=== PATIENT | female | born 1965 | race Caucasian/White ===

== ENCOUNTER 2016-06-26 11:14 | Inpatient (IN) | payer OTHER ==
[2016-06-26] VITALS (7 sets, daily range): BP systolic 114–128; BP diastolic 62–87; PULSE 77–99; RESP 12–22; TEMP 96.2–97.9; O2SAT 97–99
[~2016-06-26] VITALS: Ht 170.2 cm; Wt 61.4 kg
[~2016-06-26 11:14] MED LIST: DEPA500T3 PO; DULO20 PO; FIORINAL2 PO; IMIT100T PO; XANA1TAB6 PO; ZOLP10TA3 PO
--- NOTE | 2016-06-26 11:25 | PD ---
HPI Chief Complaint: flank pain Time Seen by Provider: 11:19 Travel History International Travel<30 days: No Contact w/Intl Traveler<30days: No Traveled to known affect area: No History of Present Illness HPI 50-year-old female came to the emergency room brought by EMS with history of right-sided flank pain that's been going on since yesterday. Patient has history of passing multiple renal calculi. Patient realized that this was probably another of those and took some Advil last night. However this morning the pain has been severe and she has been nauseous. She has been trying to urinate but has been unsuccessful since this morning. Paramedics gave her total of 8 mg of morphine so far. She looks a little more comfortable at this point. No history of fever or chills. [facility] Past Medical History Narrative Medical List of her past medical history is reviewed from the nursing note. Bipolar Disorder: Yes Anxiety: Yes Depression: Yes Heart Rhythm Problems: No Cardiac Catheterization: No Cardiovascular Problems: No High Cholesterol: No Congestive Heart Failure: No Diabetes: No Diminished Hearing: No Fibromyalgia: Yes Hypertension: No Kidney Stones: Yes Neurologic: Yes (RLS) Immunizations Current: Yes Migraines: Yes Menopausal: Yes Past Surgical History Appendectomy: Yes Section: Yes Coronary Artery Bypass Graft: No Gynecologic Surgery: Yes (hysterectomy) Hysterectomy: Yes Social History Alcohol Use: No Tobacco Use: Yes (1 PPD) Substance Use: No Allergies-Medications (Allergen,Severity, Reaction): Coded Allergies: No Known Allergies (Verified , 06/26/16) Comments No known drug allergies. Reported Meds & Prescriptions Reported Meds & Active Scripts Active Reported Fiorinal (Butalbital/Aspirin/Caffeine) 50-325-40 Mg Cap 1 Cap PO Q4H PRN Do not exceed 6 capsules/day. Ambien (Zolpidem Tartrate) 10 Mg Tab 10 Mg PO HS PRN Imitrex (Sumatriptan Succinate) 100 Mg Tab 100 Mg PO ONCE PRN If a satisfactory response has not been obtained at 2 hours, a second dose may be administered Depakote ER (Divalproex Sodium) 500 Mg Luana 500 Mg PO BID Alprazolam 1 Mg Tab 1 Mg PO BID PRN Narrative Medication List of her home medications reviewed from the nursing note. Review of Systems Except as stated in HPI: all other systems reviewed are Neg Physical Exam Narrative GENERAL: Awake, alert, moderate distress SKIN: Warm and dry. Pale HEAD: Atraumatic. Normocephalic. EYES: Pupils equal and round. No scleral icterus. No injection or drainage. ENT: No nasal bleeding or discharge. Dry mucous membrane NECK: Trachea midline. No JVD. CARDIOVASCULAR: Regular rate and rhythm. No murmur appreciated. RESPIRATORY: No accessory muscle use. Clear to auscultation. Breath sounds equal bilaterally. GASTROINTESTINAL: Abdomen soft, non-tender, nondistended. Hepatic and splenic margins not palpable. MUSCULOSKELETAL: No obvious deformities. No clubbing. No cyanosis. No edema. NEUROLOGICAL: Awake and alert. No obvious cranial nerve deficits. Motor grossly within normal limits. Normal speech. PSYCHIATRIC: Appropriate mood and affect; insight and judgment normal. Data Data Last Documented VS Vital Signs Date Time Temp Pulse Resp B/P Pulse Ox O2 Delivery O2 Flow Rate FiO2 06/26/16 13:00 90 20 121/62 98 Room Air 06/26/16 11:23 97.9 Orders Complete Blood Count With Diff (06/26/16 11:30) Comprehensive Metabolic Panel (06/26/16 11:30) Urinalysis - C+S If Indicated (06/26/16 11:30) Ct Abd/Pel W/O Iv Contrast (06/26/16 11:30) Ecg Monitoring (06/26/16 11:30) Iv Access Insert/Monitor (06/26/16 11:30) Sodium Chloride 0.9% Flush (Ns Flush) (06/26/16 11:30) Sodium Chlor 0.9% 1000 Ml Inj (Ns 1000 M (06/26/16 11:30) Ketorolac Inj (Toradol Inj) (06/26/16 11:30) Sodium Chlor 0.9% 1000 Ml Inj (Ns 1000 M (06/26/16 13:00) Ceftriaxone Inj (Rocephin Inj) (06/26/16 13:15) Blood Culture (06/26/16 13:05) Lactic Acid (06/26/16 13:05) Admit Order (Ed Use Only) (06/26/16 13:15) Labs Laboratory Tests Test 06/26/16 06/26/16 11:41 12:48 White Blood Count 15.7 TH/MM3 Red Blood Count 4.60 MIL/MM3 Hemoglobin 13.9 GM/DL Hematocrit 41.2 % Mean Corpuscular Volume 89.5 FL Mean Corpuscular Hemoglobin 30.2 PG Mean Corpuscular Hemoglobin 33.7 % Concent Red Cell Distribution Width 12.9 % Platelet Count 241 TH/MM3 Mean Platelet Volume 7.4 FL Neutrophils (%) (Auto) 79.1 % Lymphocytes (%) (Auto) 10.2 % Monocytes (%) (Auto) 8.5 % Eosinophils (%) (Auto) 1.3 % Basophils (%) (Auto) 0.9 % Neutrophils # (Auto) 12.4 TH/MM3 Lymphocytes # (Auto) 1.6 TH/MM3 Monocytes # (Auto) 1.3 TH/MM3 Eosinophils # (Auto) 0.2 TH/MM3 Basophils # (Auto) 0.1 TH/MM3 CBC Comment DIFF FINAL Differential Comment Sodium Level 140 MEQ/L Potassium Level 3.5 MEQ/L Chloride Level 106 MEQ/L Carbon Dioxide Level 25.3 MEQ/L Anion Gap 9 MEQ/L Blood Urea Nitrogen 30 MG/DL Creatinine 1.38 MG/DL Estimat Glomerular Filtration 41 ML/MIN Rate Random Glucose 93 MG/DL Calcium Level 9.0 MG/DL Total Bilirubin 0.3 MG/DL Aspartate Amino Transf 11 U/L (AST/SGOT) Alanine Aminotransferase 21 U/L (ALT/SGPT) Alkaline Phosphatase 67 U/L Total Protein 6.8 GM/DL Albumin 4.0 GM/DL Urine Color YELLOW Urine Turbidity HAZY Urine pH 6.0 Urine Specific [place] 1.014 Urine Protein 30 mg/dL Urine Glucose (UA) NEG mg/dL Urine Ketones NEG mg/dL Urine Occult Blood LARGE Urine Nitrite NEG Urine Bilirubin NEG Urine Urobilinogen LESS THAN 2.0 MG/DL Urine Leukocyte Esterase NEG Urine RBC /hpf Urine WBC 8 /hpf Urine Squamous Epithelial 1 /hpf Cells Microscopic Urinalysis Comment CULT NOT INDICATED MDM Medical Decision Making Medical Screen Exam Complete: Yes Emergency Medical Condition: Yes Medical Record Reviewed: Yes Differential Diagnosis Ureteral colic, pyelonephritis, musculoskeletal pain Narrative Course 11:45 AM awaiting for the blood test result and the CAT scan to be done and resulted. Patient is getting IV fluid and Toradol. 1:20 PM based on the CAT scan report I discussed with Dr. Park who was manager convention for urology. Given the fact that her pain is coming back and there are significant hydroureter on the right side, I have decided to admit her. UA appears to be in normal limits. White count is elevated. I spoke with the residents and admitted the patient. Procedures EKG Prior to Arrival: No Physician Communication Physician Communication Dr. Buckner Diagnosis Primary Impression: Renal colic Additional Impressions: Hydroureter Leukocytosis Qualified Code: D72.829 - Leukocytosis, unspecified type Admitting Information Admitting Physician Requests: Admit Scripts Ketorolac 10 Mg Tab10 Mg PO Q6HR PRN (PAIN) #30 TAB Ref 0 Prov:Nydia Desouza MD R2 06/27/16 Tawana Caro MD Jun 26, 2016 11:25
[2016-06-26] MEDS ORDERED: SODIUM CHLOR 0.9% 1000 ML INJ 1,000 ML IV ONE ×2 (11:30→13:00)
[2016-06-26] MEDS ORDERED: KETOROLAC TROMETHAMINE 30 MG/ML (IVP) VIAL IV PUSH ONE (11:30)
[2016-06-26] MEDS ORDERED: SODIUM CHLORIDE 0.9% FLUSH 5 ML FLUSH IVF PRN (11:30)
[2016-06-26] MEDS ORDERED: IMIT100T PO (11:36)
[2016-06-26] MEDS ORDERED: DEPA500T3 PO (11:36)
[2016-06-26] MEDS ORDERED: AMBI10TA PO (11:36)
[2016-06-26] MEDS ORDERED: FIORINAL2 PO (11:36)
[2016-06-26] MEDS ORDERED: ALPR1TAB3 PO (11:36)
[2016-06-26 11:51] LABS: AUTOMATED NEUTROPHIL # 12.4 TH/MM3 (1.8-7.7); BASOPHIL # 0.1 TH/MM3 (0-0.2); BASOPHIL % 0.9 % (0.0-2.0); EOSINOPHIL # 0.2 TH/MM3 (0-0.4); EOSINOPHIL % 1.3 % (0.0-4.0); HEMATOCRIT 41.2 % (35.0-46.0); HEMO FLAGS DIFF FINAL; LYMPH % 10.2 % (9.0-44.0); LYMPHOCYTE # 1.6 TH/MM3 (1.0-4.8); MEAN CELL VOLUME 89.5 FL (80.0-100.0); MEAN CORPUSCULAR HEMOGLOBIN 30.2 PG (27.0-34.0); MEAN CORPUSCULAR HGB CONC 33.7 % (32.0-36.0); MONO % 8.5 % (0.0-8.0); NEUT % 79.1 % (16.0-70.0); PLATELET COUNT 241 TH/MM3 (150-450); RED CELL DISTRIBUTION WIDTH 12.9 % (11.6-17.2); WHITE BLOOD COUNT 15.7 TH/MM3 (4.0-11.0)
[2016-06-26 12:07] LABS: ANION GAP 9 MEQ/L (5-15); AST (GOT) 11 U/L (15-37); BICARBONATE 25.3 MEQ/L (21.0-32.0); BLOOD UREA NITROGEN 30 MG/DL (7-18); CHLORIDE 106 MEQ/L (98-107); GLOMERULAR FILTRATION RATE 41 ML/MIN (>89); POTASSIUM 3.5 MEQ/L (3.5-5.1); SODIUM (NA) 140 MEQ/L (136-145)
[2016-06-26 12:12] LABS: ALKALINE PHOSPHATASE 67 U/L (45-117); ALT (GPT) 21 U/L (10-53); TOTAL BILIRUBIN ADULT 0.3 MG/DL (0.2-1.0)
--- NOTE | 2016-06-26 12:55 | RADRPT ---
EXAM DATE/TIME: 06/26/2016 12:23 [place] COMPARISON: No previous studies available for comparison. INDICATIONS : Right flank pain. ORAL CONTRAST: No oral contrast ingested. RADIATION DOSE: 5.09 CTDIvol (mGy) MEDICAL HISTORY : Renal calculi. SURGICAL HISTORY : Appendectomy. Hysterectomy. ENCOUNTER: Initial ACUITY: 1 day PAIN SCALE: 7/10 LOCATION: Right flank TECHNIQUE: Volumetric scanning of the abdomen and pelvis was performed. Using automated exposure control and ad justment of the mA and/or kV according to patient size, radiation dose was kept as low as reasonably achievable to obtain optimal diagnostic quality images. FINDINGS: LOWER LUNGS: The visualized lower lungs are clear. LIVER: Visualized portions are unremarkable SPLEEN: Visualized portions are unremarkable PANCREAS: Within normal limits. KIDNEYS: There is moderate right hydronephrosis and hydroureter. The ureter appears to be dilated throughout, however no definite calcific focus is identified along the course of the ureter. There is a 3-4 mm no nobstructing calculus in the lower pole collecting system of the right kidney and there is a 3-4 mm o ssific focus along the dependent posterior wall of the urinary bladder which may be a recently passed stone. There is mild perinephric and periureteric induration on the right side mild swelling of the kidney. Contralateral left kidney is notable for small cyst in the posterior lateral lower pole miroslava x. ADRENAL GLANDS: Within normal limits. VASCULAR: 3.3 cm abdominal aortic aneurysm. Patchy atherosclerotic calcification. BOWEL/MESENTERY: The stomach, small bowel, and colon demonstrate no acute abnormality. There is no free intraperitone al air or fluid. ABDOMINAL WALL: Within normal limits. RETROPERITONEUM: There is no lymphadenopathy. BLADDER: See above REPRODUCTIVE: Within normal limits. INGUINAL: There is no lymphadenopathy or hernia. MUSCULOSKELETAL: Within normal limits for patient age. CONCLUSION: Moderate right hydronephrosis and hydroureter. Tiny nonobstructing lower pole collecting system stone and small stone in the urinary bladder, likely recently passed. No evidence of remaining ureteral st one. Mal Carrington MD on June 26, 2016 at 12:42 Board Certified Radiologist. This report was verified electronically.
[2016-06-26 13:13] LABS: BLOOD, URINE LARGE (NEG); COMMENT (UR) CULT NOT INDICATED; CULTURE IF INDICATED CULT NOT INDICATED; GLUCOSE,URINE NEG (NEG); KETONE, URINE NEG (NEG); NITRITE,URINE NEG (NEG); SQUAMOUS EPITHELIAL CELL URINE 1 /hpf (0-5); URINE COLOR YELLOW (YELLW/STRAW)
[2016-06-26] MEDS ORDERED: cefTRIAXone INJ 1,000 MG in SODIUM CHLORIDE 0.9% INJ 100 ML IV ONE (13:15)
--- NOTE | 2016-06-26 13:26 | HHI.HP ---
HPI Service Family Medicine Team A Dr. Mejia attending Dr. Desouza PGY2 Dr. Pollack PGY1 Dr. Escalona PGY3 Primary Care Physician Neil Jones MD Admission Diagnosis Diagnoses: International Travel<30 Days: No Contact w/Intl Traveler<30days: No Known Affected Area: No History of Present Illness This is a 50-year-old female patient with a history of renal stones presents today for right flank pain 1 day. It started night. She states she just passed 4 kidney stones in May. She states she has hx of kidney stones and passes them 3-4x a year. She has been seen by urologist multiple times. She states she has never had a stone analyzed. She is unclear what the workup has contained and she thinks they don't know she continues to make them. She has never had to have surgery to remove the stone. She is not having any pain with urination. She denies F/C. She states the pain was worse today. She has a history of abdominal aneurysm and when her pain worsened she called 911. In the ED CT scan was significant for right hydronephrosis, nonobstructing Calculus, and ossific focus and urinary bladder. Patient was found to have significant leukocytosis. Dr. Park was contacted and is aware of the patient. Patient was started on some IV fluids. UA obtained. She was given 1 g of Rocephin. Review of Systems Constitutional: DENIES: Fever, Chills Eyes: DENIES: Blurred vision, Diplopia Ears, nose, mouth, throat: DENIES: Tinnitus, Hearing loss Respiratory: DENIES: Cough, Shortness of breath Cardiovascular: DENIES: Chest pain, Palpitations Gastrointestinal: COMPLAINS OF: Abdominal pain, DENIES: Nausea Genitourinary: DENIES: Urinary frequency, Urinary incontinence, Urgency Musculoskeletal: COMPLAINS OF: Muscle aches, Back pain, DENIES: Neck pain Neurologic: DENIES: Abnormal gait Psychiatric: DENIES: Mood changes Past Family Social History Past Medical History Migraines Anxiety and Depression Aneurysm Past Surgical History Hysterectomy Reported Medications Fiorinal (Butalbital/Aspirin/Caffeine) 50-325-40 Mg Cap 1 Cap PO Q4H PRN Do not exceed 6 capsules/day. Imitrex (Sumatriptan Succinate) 100 Mg Tab 100 Mg PO ONCE PRN If a satisfactory response has not been obtained at 2 hours, a second dose may be administered Depakote ER (Divalproex Sodium) 500 Mg Luana 500 Mg PO BID Alprazolam 1 Mg Tab 1 Mg PO BID PRN Ambien hs Allergies: Coded Allergies: No Known Allergies (Verified , 06/26/16) Family History Father passed of [place] at 48 yo Mother no significant medical illness, uncle with bladder cancer Social History Lives with son works at [employer] No alcohol use No drug use Cigarette use (1pck/day x 30 yrs) Physical Exam Vital Signs Vital Signs Date Time Temp Pulse Resp B/P Pulse Ox O2 Delivery O2 Flow Rate FiO2 06/26/16 12:50 20 06/26/16 12:49 94 22 128/71 98 Room Air 06/26/16 11:29 96 18 06/26/16 11:23 97.9 99 18 125/80 99 Physical Exam GENERAL: This is a well-nourished, well-developed patient, in no apparent distress. SKIN: No rashes, ecchymoses or lesions. Cool and dry. HEAD: Atraumatic. Normocephalic. No temporal or scalp tenderness. EYES: Pupils equal round and reactive. Extraocular motions intact. No scleral icterus. No injection or drainage. ENT: Nose without bleeding, purulent drainage or septal hematoma. Throat without erythema, tonsillar hypertrophy or exudate. Uvula midline. Airway patent. NECK: Trachea midline. No JVD or lymphadenopathy. Supple, nontender, no meningeal signs. CARDIOVASCULAR: Regular rate and rhythm without murmurs, gallops, or rubs. RESPIRATORY: Clear to auscultation. Breath sounds equal bilaterally. No wheezes , rales, or rhonchi. GASTROINTESTINAL: Abdomen soft and nondistended. Minimal tenderness to palpation of RLQ. No guarding. BACK: ++RT CVA tenderness MUSCULOSKELETAL: Extremities without clubbing, cyanosis, or edema. No joint tenderness, effusion, or edema noted. No calf tenderness. Negative Homans sign bilaterally. NEUROLOGICAL: Awake and alert. Cranial nerves II through XII intact. Motor and sensory grossly within normal limits. Five out of 5 muscle strength in all muscle groups. Normal speech. Laboratory Laboratory Tests Test 06/26/16 06/26/16 11:41 12:48 White Blood Count 15.7 Red Blood Count 4.60 Hemoglobin 13.9 Hematocrit 41.2 Mean Corpuscular Volume 89.5 Mean Corpuscular Hemoglobin 30.2 Mean Corpuscular Hemoglobin 33.7 Concent Red Cell Distribution Width 12.9 Platelet Count 241 Mean Platelet Volume 7.4 Neutrophils (%) (Auto) 79.1 Lymphocytes (%) (Auto) 10.2 Monocytes (%) (Auto) 8.5 Eosinophils (%) (Auto) 1.3 Basophils (%) (Auto) 0.9 Neutrophils # (Auto) 12.4 Lymphocytes # (Auto) 1.6 Monocytes # (Auto) 1.3 Eosinophils # (Auto) 0.2 Basophils # (Auto) 0.1 CBC Comment DIFF FINAL Differential Comment Sodium Level 140 Potassium Level 3.5 Chloride Level 106 Carbon Dioxide Level 25.3 Anion Gap 9 Blood Urea Nitrogen 30 Creatinine 1.38 Estimat Glomerular Filtration 41 Rate Random Glucose 93 Calcium Level 9.0 Total Bilirubin 0.3 Aspartate Amino Transf 11 (AST/SGOT) Alanine Aminotransferase 21 (ALT/SGPT) Alkaline Phosphatase 67 Total Protein 6.8 Albumin 4.0 Urine Color YELLOW Urine Turbidity HAZY Urine pH 6.0 Urine Specific [place] 1.014 Urine Protein 30 Urine Glucose (UA) NEG Urine Ketones NEG Urine Occult Blood LARGE Urine Nitrite NEG Urine Bilirubin NEG Urine Urobilinogen LESS THAN 2.0 Urine Leukocyte Esterase NEG Urine RBC Urine WBC 8 Urine Squamous Epithelial 1 Cells Microscopic Urinalysis Comment CULT NOT INDICATED Result Diagram: 06/26/16 1141 06/26/[address] abdomen: rt hydronephrosis, non obstructing calculus, ossific focus in urinary bladder Assessment and Plan Assessment and Plan 50-year-old female patient who presented with right flank pain 1 day found to have a right nonobstructing calculus. Code Status full Discussed Condition With Dr. Desouza ED physician wdw Dr. Mejia Problem List: (1) Calculi, ureter Status: Acute Plan: See CT of abdomen above. LIZET noted, Ct 1.38 on admission, previously <1 - UA pending - Urine culture pending - Dr. Vivian belle consulted - Continue IV Rocephin 1 g because of significant leukocytosis. - Morphine & Toradol for pain - IVF . (2) Anxiety and depression Status: Chronic Plan: Continue home meds: ativan, depakote, requip (3) Migraine Status: Chronic Plan: Continue home imitrex and fiorcet prn (4) FEN Status: Acute Plan: Fluids: IV NS @ 100 cc/hr, status post 1 L bolus Electrolytes: currently wnl, replete as necessary Nutrition: regular diet DVT prophy: bilat SCDs Physician Certification 2 Midnight Certification Type: Admission for Inpatient Services Order for Inpatient Services The services are ordered in accordance with Medicare regulations or non- Medicare payer requirements, as applicable. In the case of services not specified as inpatient-only, they are appropriately provided as inpatient services in accordance with the 2-midnight benchmark. Estimated LOS (days): 3 days is the estimated time the patient will need to remain in the hospital, assuming treatment plan goals are met and no additional complications. Post-Hospital Plan: Home Kathleen Escalona MD R3 Jun 26, 2016 13:26
[2016-06-26] MEDS ORDERED: ZOLPIDEM TARTRATE 10 MG TAB PO PRN (14:00)
[2016-06-26] MEDS ORDERED: ALPRAZolam 1 MG TAB PO PRN (14:00)
[2016-06-26] MEDS ORDERED: SUMAtriptan SUCCINATE 50 MG TAB PO PRN (14:00)
[2016-06-26] MEDS: SODIUM CHLOR 0.9% 1000 ML INJ 1,000 ML IV SCH (14:07)
[2016-06-26] MEDS ORDERED: ASPIRIN 325 MG/CAFFEINE 40 MG/BUTALBITAL 50 MG CAP PO PRN (15:00)
[2016-06-26] MEDS: MORPHINE SULFATE 4 MG/ML INJ IV PUSH PRN ×2 (15:48→20:51)
--- NOTE | 2016-06-26 17:14 | PD.CONS ---
[facility] Service Urology Consult Requested By Reason for Consult Right hydronephrosis Primary Care Physician Neil Jones MD Diagnosis: History of Present Illness 50-year-old female with history recurrent nephrolithiasis who presented to the emergency room complaining of right flank pain 1 day. Workup included a CT stone protocol that demonstrated right hydroureteronephrosis however there were no obstructing stones seen within the ureter. Was a small stone seen within the bladder consistent with recent stone passage. Patient also was noted to have elevation of the white blood cell count and thus was admitted for IVs antibiotics and analgesic support. Urology consult was placed due to the fact that the patient had hydronephrosis with elevation of the white cell count. At the time of consultation the patient was resting quietly and in no acute distress. She denied gross hematuria or dysuria. Reports that she has passed multiple stones in the past spontaneously and never required any type of urological procedure. She typically passes 3-4 stones per year. Review of Systems Constitutional: DENIES: Fever, Chills Gastrointestinal: DENIES: Nausea, Vomiting Genitourinary: DENIES: Hematuria, Dysuria Musculoskeletal: COMPLAINS OF: Back pain (right flank) Other All other systems negative Past Family Social History Past Medical History Migraine headaches Anxiety/depression Aortic aneurysm Recurrent nephrolithiasis Past Surgical History Status post hysterectomy Status post section Reported Medications Refer to EMR Allergies: Coded Allergies: No Known Allergies (Verified , 06/26/16) Active Ordered Medications Refer to EMR Family History No family history for nephrolithiasis Social History Smoker one pack per day 30 years Denies alcohol or intravenous drug abuse Physical Exam Vital Signs Vital Signs Date Time Temp Pulse Resp B/P Pulse Ox O2 Delivery O2 Flow Rate FiO2 06/26/16 15:55 20 06/26/16 15:04 89 20 127/87 99 Room Air 06/26/16 14:00 94 22 122/83 98 Room Air 06/26/16 13:00 90 20 121/62 98 Room Air 06/26/16 12:50 20 06/26/16 12:49 94 22 128/71 98 Room Air 06/26/16 11:29 96 18 06/26/16 11:23 97.9 99 18 125/80 99 Physical Exam GENERAL: This is a well-nourished, well-developed patient, in no apparent distress. SKIN: No rashes, ecchymoses or lesions. Cool and dry. HEAD: Atraumatic. Normocephalic. No temporal or scalp tenderness. EYES: Pupils equal round and reactive. Extraocular motions intact. No scleral icterus. No injection or drainage. ENT: Nose without bleeding, purulent drainage or septal hematoma. Throat without erythema, tonsillar hypertrophy or exudate. Uvula midline. Airway patent. NECK: Trachea midline. No JVD or lymphadenopathy. Supple, nontender, no meningeal signs. CARDIOVASCULAR: Regular rate and rhythm without murmurs, gallops, or rubs. RESPIRATORY: Clear to auscultation. Breath sounds equal bilaterally. No wheezes , rales, or rhonchi. GASTROINTESTINAL: Abdomen soft, non-tender, nondistended. No hepato-splenomegaly , or palpable masses. No guarding. MUSCULOSKELETAL: Extremities without clubbing, cyanosis, or edema. No joint tenderness, effusion, or edema noted. No calf tenderness. Negative Homans sign bilaterally. NEUROLOGICAL: Awake and alert. Cranial nerves II through XII intact. Motor and sensory grossly within normal limits. Five out of 5 muscle strength in all muscle groups. Normal speech. Laboratory Laboratory Tests Test 06/26/16 06/26/16 06/26/16 11:41 12:48 14:00 White Blood Count 15.7 Red Blood Count 4.60 Hemoglobin 13.9 Hematocrit 41.2 Mean Corpuscular Volume 89.5 Mean Corpuscular Hemoglobin 30.2 Mean Corpuscular Hemoglobin 33.7 Concent Red Cell Distribution Width 12.9 Platelet Count 241 Mean Platelet Volume 7.4 Neutrophils (%) (Auto) 79.1 Lymphocytes (%) (Auto) 10.2 Monocytes (%) (Auto) 8.5 Eosinophils (%) (Auto) 1.3 Basophils (%) (Auto) 0.9 Neutrophils # (Auto) 12.4 Lymphocytes # (Auto) 1.6 Monocytes # (Auto) 1.3 Eosinophils # (Auto) 0.2 Basophils # (Auto) 0.1 CBC Comment DIFF FINAL Differential Comment Sodium Level 140 Potassium Level 3.5 Chloride Level 106 Carbon Dioxide Level 25.3 Anion Gap 9 Blood Urea Nitrogen 30 Creatinine 1.38 Estimat Glomerular Filtration 41 Rate Random Glucose 93 Calcium Level 9.0 Total Bilirubin 0.3 Aspartate Amino Transf 11 (AST/SGOT) Alanine Aminotransferase 21 (ALT/SGPT) Alkaline Phosphatase 67 Total Protein 6.8 Albumin 4.0 Urine Color YELLOW Urine Turbidity HAZY Urine pH 6.0 Urine Specific [place] 1.014 Urine Protein 30 Urine Glucose (UA) NEG Urine Ketones NEG Urine Occult Blood LARGE Urine Nitrite NEG Urine Bilirubin NEG Urine Urobilinogen LESS THAN 2.0 Urine Leukocyte Esterase NEG Urine RBC Urine WBC 8 Urine Squamous Epithelial 1 Cells Microscopic Urinalysis Comment CULT NOT INDICATED Lactic Acid Level 0.4 Date/Time Procedure Status Source Growth 06/26/16 14:00 Aerobic Blood Culture Received Blood Peripheral Pending 06/26/16 14:00 Anaerobic Blood Culture Received Blood Peripheral Pending Result Diagram: 06/26/16 1141 06/26/[address] scanning demonstrated an approximately 4 mm right lower pole calculus, right hydroureteronephrosis with no ureteral stone seen, a small left renal cyst and a small stone measuring approximately 4 mm within the urinary bladder. Assessment and Plan Assessment and Plan Urologic impression: #1 Right hydronephrosis related to recent stone passage with a 4 mm stone noted to be within the urinary bladder. #2 nonobstructing right lower pole renal calculus measuring approximate 4 mm #3 small simple cyst to left kidney Recommendations: #1 analgesic support #2 strain urine #3 urologically cleared for discharge home when pain managed with oral meds and vitals stable #4 office follow up in approximately 2 weeks [phone]. Daniel Park MD Jun 26, 2016 17:14
[2016-06-26] MEDS: KETOROLAC TROMETHAMINE 30 MG/ML (IVP) VIAL IV PUSH PRN (18:19)
[2016-06-26] MEDS: NICOTINE 21 MG/24 HR PATCH TD SCH (20:44)
[2016-06-26] MEDS: DIVALPROEX SODIUM E.R. 500 MG TAB PO SCH (20:44)
[2016-06-27] VITALS: BP 132/63; PULSE 87; RESP 17; TEMP 98.3; O2SAT 99
[2016-06-27] MEDS: SODIUM CHLOR 0.9% 1000 ML INJ 1,000 ML IV SCH
[2016-06-27] MEDS: KETOROLAC TROMETHAMINE 30 MG/ML (IVP) VIAL IV PUSH PRN ×2 (03:45→09:32)
[2016-06-27 04:00] VITALS: BP 138/81; PULSE 90; RESP 18; TEMP 97.6; O2SAT 98
[2016-06-27] MEDS: MORPHINE SULFATE 4 MG/ML INJ IV PUSH PRN (05:32)
[2016-06-27 07:59] LABS: AUTOMATED NEUTROPHIL # 4.9 TH/MM3 (1.8-7.7); BASOPHIL # 0.1 TH/MM3 (0-0.2); BASOPHIL % 1.1 % (0.0-2.0); EOSINOPHIL # 0.3 TH/MM3 (0-0.4); EOSINOPHIL % 3.7 % (0.0-4.0); HEMATOCRIT 35.5 % (35.0-46.0); HEMO FLAGS DIFF FINAL; LYMPH % 22.8 % (9.0-44.0); LYMPHOCYTE # 1.8 TH/MM3 (1.0-4.8); MEAN CELL VOLUME 90.3 FL (80.0-100.0); MEAN CORPUSCULAR HEMOGLOBIN 30.4 PG (27.0-34.0); MEAN CORPUSCULAR HGB CONC 33.7 % (32.0-36.0); MONO % 8.9 % (0.0-8.0); NEUT % 63.5 % (16.0-70.0); PLATELET COUNT 210 TH/MM3 (150-450); RED BLOOD COUNT 3.93 MIL/MM3 (4.00-5.30); RED CELL DISTRIBUTION WIDTH 12.8 % (11.6-17.2); WHITE BLOOD COUNT 7.7 TH/MM3 (4.0-11.0)
[2016-06-27 08:00] VITALS: BP 138/61; PULSE 86; RESP 18; TEMP 98.1; O2SAT 98
[2016-06-27] MEDS ORDERED: KETO10 PO (08:05)
--- NOTE | 2016-06-27 08:05 | HHI.DCPOC ---
Discharge Care Plan Diagnosis: (1) Calculi, ureter (2) Hydroureter Goals to Promote Your Health * To prevent worsening of your condition and complications * To maintain your health at the optimal level Directions to Meet Your Goals Take your medications as prescribed Follow your dietary instruction Follow activity as directed Keep your appointments as scheduled Take your immunizations and boosters as scheduled If your symptoms worsen call your PCP, if no PCP go to Urgent Care Center or Emergency Room Smoking is Dangerous to Your Health. Avoid second hand smoke Call the 24-hour hour crisis hotline for domestic abuse at Nydia Desouza MD R2 Jun 27, 2016 08:05
[2016-06-27 08:31] LABS: BICARBONATE 23.6 MEQ/L (21.0-32.0); POTASSIUM 4.1 MEQ/L (3.5-5.1)
[2016-06-27] MEDS ORDERED: REMOVE OLD NICODERM (NICOTINE) PATCH TD SCH (09:00)
[2016-06-27] MEDS ORDERED: cefTRIAXone INJ 1,000 MG in SODIUM CHLORIDE 0.9% INJ 100 ML IV SCH (09:00)
[2016-06-27] MEDS: DIVALPROEX SODIUM E.R. 500 MG TAB PO SCH (09:31)
[2016-06-27] MEDS: NICOTINE 21 MG/24 HR PATCH TD SCH (09:32)
--- NOTE | 2016-06-27 10:24 | HHI.FPPN ---
Subjective Remarks Issues overnight. Vitals are stable, patient remained afebrile. She continues to have some right flank pain that comes and goes, however it is improved since yesterday. She has not passed any stones at this time. Her urine remains dark. She denies any fever, chills, nausea, vomiting or diarrhea. (Nydia Desouza MD R2) Objective Vitals Vital Signs Date Time Temp Pulse Resp B/P Pulse Ox O2 Delivery O2 Flow Rate FiO2 06/27/16 08:00 98.1 86 18 138/61 98 06/27/16 04:00 97.6 90 18 138/81 98 06/27/16 00:00 98.3 87 17 132/63 99 06/26/16 20:00 97.7 88 18 125/67 98 06/26/16 17:58 96.2 77 12 114/74 97 06/26/16 15:55 20 06/26/16 15:04 89 20 127/87 99 Room Air 06/26/16 14:00 94 22 122/83 98 Room Air 06/26/16 13:00 90 20 121/62 98 Room Air 06/26/16 12:50 20 06/26/16 12:49 94 22 128/71 98 Room Air 06/26/16 11:29 96 18 06/26/16 11:23 97.9 99 18 125/80 99 I/O 06/26/16 06/26/16 06/26/16 06/27/16 06/27/16 06/27/16 07:00 15:00 23:00 07:00 15:00 23:00 Intake Total 1000 ml 960 ml 1851 ml Balance 1000 ml 960 ml 1851 ml Intake Oral 960 ml 480 ml IV Total 1000 ml 1371 ml Bladder Scan Volume Amount 176 ml # Voids 1 4 3 # Bowel Movements 0 0 (Nydia Desouza MD R2) Result Diagram: 06/27/16 0610 06/27/16 0610 Imaging Last Impressions Abdomen/Pelvis CT 06/26/16 1130 Signed Impressions: Service Date/Time: Sunday, June 26, 2016 12:23 - CONCLUSION: Moderate right hydronephrosis and hydroureter. Tiny nonobstructing lower pole collecting system stone and small stone in the urinary bladder, likely recently passed. No evidence of remaining ureteral stone. Mal Carrington MD Objective Remarks GENERAL: This is a well-nourished, well-developed female patient, in no apparent distress. SKIN: No rashes, ecchymoses or lesions. Cool and dry. HEAD: Atraumatic. Normocephalic. No temporal or scalp tenderness. EYES: Pupils equal round and reactive. Extraocular motions intact. No scleral icterus. No injection or drainage. ENT: Nose without bleeding, purulent drainage or septal hematoma. Throat without erythema, tonsillar hypertrophy or exudate. Uvula midline. Airway patent. NECK: Trachea midline. No JVD or lymphadenopathy. Supple, nontender, no meningeal signs. CARDIOVASCULAR: Regular rate and rhythm without murmurs, gallops, or rubs. RESPIRATORY: Clear to auscultation. Breath sounds equal bilaterally. No wheezes , rales, or rhonchi. GASTROINTESTINAL: Abdomen soft and nondistended. Minimal tenderness to palpation of RLQ. No guarding. BACK: Mild RT CVA tenderness, no left CVA tenderness. MUSCULOSKELETAL: Extremities without clubbing, cyanosis, or edema. No joint tenderness, effusion, or edema noted. No calf tenderness. NEUROLOGICAL: Awake and alert. Cranial nerves II through XII intact. Motor and sensory grossly within normal limits. Normal speech. (Nydia Desouza MD R2) A/P Assessment and Plan 50-year-old female patient who presented with right flank pain 1 day found to have a right nonobstructing calculus. Discharge Planning Anticipate discharge today. sdw Dr. Mejia, Dr. Escalona, Dr. Pollack, and Yuliana MS4 (Nydia Desouza MD R2) Attending Attestation A detailed discussion involving Dr Escalona, Dr Desouza, Dr Pollack and MS [facility] about patients admission occurred this am, Patient was then seen and examined, Agree with details of this note, Agree with Assessment and Plan, See Orders. ( Stan Mejia MD) Problem List: (1) Calculi, ureter Status: Acute Plan: CT abdomen significant for moderate right hydronephrosis and hydroureter. Tiny nonobstructing lower pole collecting system stone and small stone in the urinary bladder. No evidence of remaining ureteral stone. LIZET on admission with creatinine of 1.38 has resolved. Creatinine now 0.84. UA significant for 30 protein, large occult blood, no evidence of infection - Dr. Vivian belle consulted: Will follow-up with patient as an outpatient in 2 weeks - IV Rocephin 1 g initially started due to leukocytosis of 15.7. Leukocytosis has resolvedWBC 7.7 today. Will DC IV Rocephin. - Morphine & Toradol for pain (2) Anxiety and depression Status: Chronic Plan: Continue home meds: ativan, depakote, requip (3) Migraine Status: Chronic Plan: Continue home imitrex and fiorcet prn (4) FEN Status: Acute Plan: Fluids: Encourage oral hydration Electrolytes: currently wnl, replete as necessary Nutrition: regular diet DVT prophy: bilat SCDs (Nydia Desouza MD R2) Problem Qualifiers (1) Migraine: Qualified Code: G43.909 - Migraine without status migrainosus, not intractable , unspecified migraine type Nydia Desouza MD R2 Jun 27, 2016 10:24 Stan Mejia MD Jun 27, 2016 20:51
== END 2016-06-27 11:35 | disposition home or self-care (01) | DRG 694 ==
LOC: NEPC 11:14 → NEDA 13:17 → N04A 17:25
PROVIDERS: ADMIT Family Medicine; ATTEND Family Medicine
DX: N13.2 Hydronephrosis with renal and ureteral calculous obstruction (principal); N17.9 Acute kidney failure, unspecified; N28.1 Cyst of kidney, acquired; D72.829 Elevated white blood cell count, unspecified; F31.9 Bipolar disorder, unspecified; F41.9 Anxiety disorder, unspecified; G43.909 Migraine, unspecified, not intractable, without status migrainosus; M79.7 Fibromyalgia; F17.200 Nicotine dependence, unspecified, uncomplicated; Z87.442 Personal history of urinary calculi; Z80.52 Family history of malignant neoplasm of bladder
CPT/HCPCS: 74176; 80048; 80053; 81001; 83605; 85025; 87040; 96361; 96374; J0696; J1885; J2270; J7030

== ENCOUNTER 2017-01-31 14:52 | Emergency (ER) | payer OTHER ==
[~2017-01-31] VITALS: Ht 162.6 cm; Wt 65.0 kg
[~2017-01-31 14:52] MED LIST changes: +ALPR1TAB3 PO; +AMBI10TA PO; -DULO20 PO; +KETO10 PO; -XANA1TAB6 PO; -ZOLP10TA3 PO
[2017-01-31] MEDS ORDERED: IOHEXOL 350 MG/ML 10 ML VIAL (for RAD DIAG) IVCONTRAST ONE (14:53)
[2017-01-31 14:57] VITALS: BP 162/97; PULSE 76; RESP 18; TEMP 98.2; O2SAT 98
[2017-01-31] MEDS ORDERED: SODIUM CHLOR 0.9% 1000 ML INJ 1,000 ML IV SCH (14:57)
[2017-01-31] MEDS ORDERED: PROCHLORPERAZINE INJ 10 MG/2 ML VIAL IV PUSH ONE (15:00)
[2017-01-31 15:06] VITALS: RESP 18; O2SAT 98
[2017-01-31] MEDS: SODIUM CHLORIDE 0.9% FLUSH 10 ML FLUSH IV FLUSH PRN ×2 (15:15→17:41)
--- NOTE | 2017-01-31 15:51 | PD ---
HPI Chief Complaint: Abdominal Pain Time Seen by Provider: 14:57 Travel History International Travel<30 days: No Contact w/Intl Traveler<30days: No Traveled to known affect area: No History of Present Illness HPI This is a 51-year-old female with a known 4.2 cm thoracic aortic aneurysm, who presents via EMS with abdominal pain and nausea vomiting diarrhea. Patient states that last night she started experiencing the nausea which turned into vomiting and diarrhea. She denies any fevers, chills. She reports pain in her abdomen and upper chest that radiates to her back. The patient is not hypotensive. It is not a tearing sensation pain. She has no obvious ill contacts. There is no questionable food ingestion. PFSH Past Medical History Bipolar Disorder: Yes Anxiety: Yes Depression: Yes Heart Rhythm Problems: No Cancer: No Cardiac Catheterization: No Cardiovascular Problems: No High Cholesterol: No Congestive Heart Failure: No Diabetes: No Diminished Hearing: No Endocrine: No Fibromyalgia: Yes Gastrointestinal Disorders: Yes Genitourinary: Yes Hypertension: No Immune Disorder: No Kidney Stones: Yes Musculoskeletal: Yes (restless legs) Neurologic: Yes (RLS) Psychiatric: Yes Reproductive: Yes (hysterectomy ) Respiratory: No Immunizations Current: Yes Migraines: Yes Tetanus Vaccination: > 5 Years Influenza Vaccination: Yes ?: Not Menopausal: Yes Past Surgical History Appendectomy: Yes Section: Yes Coronary Artery Bypass Graft: No Gynecologic Surgery: Yes (hysterectomy, c section) Hysterectomy: Yes Other Surgery: Yes Social History Alcohol Use: No (PT DENIES ) Tobacco Use: Yes (1 PPD) Substance Use: No (PT DENIES ) Allergies-Medications (Allergen,Severity, Reaction): Coded Allergies: No Known Allergies (Verified , 01/31/17) Reported Meds & Prescriptions Reported Meds & Active Scripts Active Zofran (Ondansetron HCl) 4 Mg Tab 4 Mg PO Q8HR PRN Bentyl (Dicyclomine HCl) 10 Mg Cap 10 Mg PO TID PRN Imitrex (Sumatriptan Succinate) 100 Mg Tab 100 Mg PO ONCE PRN If a satisfactory response has not been obtained at 2 hours, a second dose may be administered Reported Ambien (Zolpidem Tartrate) 10 Mg Tab 10 Mg PO HS PRN Imitrex (Sumatriptan Succinate) 100 Mg Tab 100 Mg PO ONCE PRN If a satisfactory response has not been obtained at 2 hours, a second dose may be administered Alprazolam 1 Mg Tab 1 Mg PO BID PRN Review of Systems Except as stated in HPI: all other systems reviewed are Neg General / Constitutional: No: Fever, Chills HENT: No: Headaches, Lightheadedness, Neck Pain Cardiovascular: Positive: Chest Pain or Discomfort (pain in her lower chest upper abdomen that radiates to her back.), No: Palpitations Respiratory: No: Cough, Shortness of Breath Gastrointestinal: Positive: Nausea, Vomiting, Diarrhea (crampy), Abdominal Pain Genitourinary: No: Frequency, Dysuria Musculoskeletal: No: Weakness, Pain Neurologic: No: Weakness, Dizziness, Headache Physical Exam Narrative GENERAL: Well-nourished female in no acute rest her distress. SKIN: Focused skin assessment warm/dry. HEAD: Atraumatic. Normocephalic. EYES: No scleral icterus. No injection or drainage. ENT: No nasal bleeding or discharge. Mucous membranes pink and moist. NECK: Trachea midline. Supple. CARDIOVASCULAR: Regular rate and rhythm. No murmur appreciated. RESPIRATORY: No accessory muscle use. Clear to auscultation. Breath sounds equal bilaterally. GASTROINTESTINAL: Abdomen soft, nondistended. There is no obvious enlarged pulsatile masses. MUSCULOSKELETAL: No obvious deformities. No clubbing. No cyanosis. No edema. Strong radial pulses bilaterally. NEUROLOGICAL: Awake and alert. No obvious cranial nerve deficits. Motor grossly within normal limits. Normal speech. Data Data Last Documented VS Vital Signs Date Time Temp Pulse Resp B/P (MAP) Pulse Ox O2 Delivery O2 Flow Rate FiO2 01/31/17 17:46 16 01/31/17 15:06 98 Room Air 01/31/17 14:57 98.2 76 162/97 (118) Orders Orders Electrocardiogram (01/31/17 ) Comprehensive Metabolic Panel (01/31/17 14:57) Lipase (01/31/17 14:57) Urinalysis - C+S If Indicated (01/31/17 14:57) Ct Abd/Pel W Iv Contrast(Rout) (01/31/17 14:57) Iv Access Insert/Monitor (01/31/17 14:57) Ecg Monitoring (01/31/17 14:57) Oximetry (01/31/17 14:57) Sodium Chlor 0.9% 1000 Ml Inj (Ns 1000 M (01/31/17 14:57) Sodium Chloride 0.9% Flush (Ns Flush) (01/31/17 15:00) Ct Thorax/ Chest W Iv Contrast (01/31/17 14:57) Prochlorperazine Inj (Compazine Inj) (01/31/17 15:00) Ckmb (Isoenzyme) Profile (01/31/17 15:52) Troponin I (01/31/17 15:52) Chest, Single Ap (01/31/17 15:52) Morphine Inj (Morphine Inj) (01/31/17 17:30) Iohexol 350 Inj (Omnipaque 350 Inj) (01/31/17 14:53) Labs Laboratory Tests Test 01/31/17 15:10 01/31/17 17:00 Blood Urea Nitrogen 12 MG/DL Creatinine 0.56 MG/DL Random Glucose 127 MG/DL Total Protein 6.8 GM/DL Albumin 3.6 GM/DL Calcium Level 9.1 MG/DL Alkaline Phosphatase 79 U/L Aspartate Amino Transf (AST/SGOT) 17 U/L Alanine Aminotransferase (ALT/SGPT) 22 U/L Total Bilirubin 0.3 MG/DL Sodium Level 138 MEQ/L Potassium Level 3.7 MEQ/L Chloride Level 106 MEQ/L Carbon Dioxide Level 24.9 MEQ/L Anion Gap 7 MEQ/L Estimat Glomerular Filtration Rate 115 ML/MIN Total Creatine Kinase 60 U/L Troponin I LESS THAN 0.02 NG/ML Lipase 192 U/L Urine Color YELLOW Urine Turbidity CLEAR Urine pH 6.0 Urine Specific [place] 1.038 Urine Protein 30 mg/dL Urine Glucose (UA) NEG mg/dL Urine Ketones NEG mg/dL Urine Occult Blood MOD Urine Nitrite NEG Urine Bilirubin NEG Urine Urobilinogen LESS THAN 2.0 MG/DL Urine Leukocyte Esterase TRACE Urine RBC 34 /hpf Urine WBC 4 /hpf Urine Squamous Epithelial Cells 1 /hpf Urine Transitional Epithelial Cells 1 /hpf Urine Mucus FEW /lpf Microscopic Urinalysis Comment CULT NOT INDICATED MDM Medical Decision Making Medical Screen Exam Complete: Yes Emergency Medical Condition: Yes Differential Diagnosis Gastroenteritis versus worsening thoracic aortic aneurysm versus abdominal aortic aneurysm Narrative Course 51-year-old female presents today with nausea vomiting diarrhea. Patient also reported atypical chest pain. The patient's EKG cardiac enzymes within normal limits. The patient's been given a liter of IVD fluids. She's also been given Compazine. She states she feels much improved. I've offered admission for cardiac rule out however she wishes to go home with antiemetics and antispasmodic speech are be given a prescription for Zofran, Bentyl and she is requesting a refill of her Imitrex for migraines. Written for 10 100 mg Imitrex pills. She'll be discharged and told to return if she does any worsening symptoms i.e. chest pain, shortness breath, or any other recent concerns her. Patient has an abdominal aortic aneurysm was concerned that this may be part of her abdominal cramps. Abdominal aortic aneurysm looks stable at 3.5 x 3 cm's. He was informed of this. She states that it was 4.2 cm on her last ultrasound. Diagnosis Primary Impression: Nausea vomiting and diarrhea Additional Impressions: Abdominal cramps History of abdominal aortic aneurysm Additional Instructions: [place] diet, advance as tolerated. Return if feeling worse. Follow up with her primary care physician. Med/Other Pt SpecificInfo: Prescription(s) given Scripts Ondansetron (Zofran) 4 Mg Tab 4 MG PO Q8HR Y for NAUSEA OR VOMITING, #15 TAB 0 Refills Prov: Sean Guillen MD 01/31/17 Dicyclomine (Bentyl) 10 Mg Cap 10 MG PO TID Y for Bowel Management, #9 CAP 0 Refills Prov: Sean Guillen MD 01/31/17 Sumatriptan (Imitrex) 100 Mg Tab 100 MG PO ONCE Y for MIGRAINE HEADACHE, #10 TAB 0 Refills If a satisfactory response has not been obtained at 2 hours, a second dose may be administered Prov: Sean Guillen MD 01/31/17 Disposition: 01 DISCHARGE HOME Condition: Stable Sean Guillen MD Jan 31, 2017 15:51
--- NOTE | 2017-01-31 16:14 | RADRPT ---
EXAM DATE/TIME: 01/31/2017 16:05 [facility] COMPARISON: CHEST SINGLE AP, December 16, 2014, 15:21. INDICATIONS : Chest pain. MEDICAL HISTORY : Aneurysm, abdominal. Aneurysm, Thoracic. SURGICAL HISTORY : None. ENCOUNTER: Initial ACUITY: 2 days PAIN SCORE: 5/10 LOCATION: Bilateral lower chest FINDINGS: A single view of the chest demonstrates the lungs to be symmetrically aerated without evidence of mas s, infiltrate or effusion. The cardiomediastinal contours are unremarkable. Osseous structures are intact. CONCLUSION: Normal examination. Can [place] Jr., MD on January 31, 2017 at 16:12 Board Certified Radiologist. This report was verified electronically.
[2017-01-31 16:17] LABS: ALT (GPT) 22 U/L (10-53)
[2017-01-31 16:19] LABS: ALKALINE PHOSPHATASE 79 U/L (45-117); TOTAL BILIRUBIN ADULT 0.3 MG/DL (0.2-1.0)
[2017-01-31 16:31] LABS: ANION GAP 7 MEQ/L (5-15); AST (GOT) 17 U/L (15-37); BICARBONATE 24.9 MEQ/L (21.0-32.0); BLOOD UREA NITROGEN 12 MG/DL (7-18); CHLORIDE 106 MEQ/L (98-107); GLOMERULAR FILTRATION RATE 115 ML/MIN (>89); SODIUM (NA) 138 MEQ/L (136-145)
[2017-01-31 16:32] LABS: POTASSIUM 3.7 MEQ/L (3.5-5.1)
[2017-01-31 16:57] LABS: CREATINE KINASE 60 U/L (26-192)
--- NOTE | 2017-01-31 17:15 | RADRPT ---
EXAM DATE/TIME: 01/31/2017 16:42 [facility] COMPARISON: CT ABDOMEN & PELVIS W/O CONTRAST, June 26, 2016, 12:23. INDICATIONS : Patient complains of chest and abdomen pain, history of thoracic aneurysm. IV CONTRAST: 97 cc Omnipaque 350 (iohexol) IV ; Cumulative dose for multiple exams. ORAL CONTRAST: No oral contrast ingested. RADIATION DOSE: 5.22 CTDIvol (mGy) ; Combined studies - Thorax/Abdomen/Pelvis MEDICAL HISTORY : Renal calculi. thoracic aneurysm SURGICAL HISTORY : Appendectomy. Hysterectomy. ENCOUNTER: Initial ACUITY: 1 day PAIN SCALE: 8/10 LOCATION: abdomen TECHNIQUE: Volumetric scanning of the abdomen and pelvis was performed. Using automated exposure control and ad justment of the mA and/or kV according to patient size, radiation dose was kept as low as reasonably achievable to obtain optimal diagnostic quality images. DICOM format image data is available electro nically for review and comparison. FINDINGS: LOWER LUNGS: The visualized lower lungs are clear. LIVER: Homogeneous density without lesion. There is no dilation of the biliary tree. No calcified gallston es. SPLEEN: Normal size without lesion. PANCREAS: Within normal limits. KIDNEYS: Normal in size and shape. There is no mass, stone or hydronephrosis. Bilateral renal densities. ADRENAL GLANDS: Within normal limits. VASCULAR: Infrarenal abdominal aortic aneurysm measures 3.3 x 3.5 cm. BOWEL/MESENTERY: Diverticulosis of the colon. Multiple areas of nondistention throughout the colon. There is no free intraperitoneal air or fluid. ABDOMINAL WALL: Within normal limits. RETROPERITONEUM: There is no lymphadenopathy. BLADDER: No wall thickening or mass. REPRODUCTIVE: Within normal limits. INGUINAL: There is no lymphadenopathy or hernia. MUSCULOSKELETAL: Within normal limits for patient age. CONCLUSION: 1. Diverticulosis without diverticulitis. 2. There are areas of non-distention throughout the colon, limiting evaluation. 3. Abdominal aortic aneurysm measures 3.5 x 3.3 cm. 4. Bilateral renal cysts. Rufus Craig MD on January 31, 2017 at 17:09 Board Certified Radiologist. This report was verified electronically.
--- NOTE | 2017-01-31 17:21 | RADRPT ---
EXAM DATE/TIME: 01/31/2017 16:45 [facility] COMPARISON: No previous studies available for comparison. INDICATIONS : Patient complains of chest and abdominal pain, history of thoracic aneurysm IV CONTRAST: 97 cc Omnipaque 350 (iohexol) IV ; Cumulative dose for multiple exams. RADIATION DOSE: 5.00 CTDIvol (mGy) ; Combined studies - Thorax/Abdomen/Pelvis MEDICAL HISTORY : Renal calculi. thoacic aneurysm SURGICAL HISTORY : Appendectomy. Hysterectomy. ENCOUNTER: Initial ACUITY: 1 day PAIN SCALE: 8/10 LOCATION: Bilateral chest TECHNIQUE: Volumetric scanning of the chest was performed. Using automated exposure control and adjustment of t he mA and/or kV according to patient size, radiation dose was kept as low as reasonably achievable to obtain optimal diagnostic quality images. DICOM format image data is available electronically for review and comparison. Follow-up recommendations for detected pulmonary nodules are based at a minimum on nodule size and pa tient risk factors according to Fleischner Society Guidelines. FINDINGS: LUNGS: There is no consolidation or pneumothorax. A few scattered subcentimeter pulmonary nodules are seen measuring 3-5 mm in size noted within the right middle, right lower, left upper and left lower lobes. PLEURA: There is no pleural thickening or pleural effusion. MEDIASTINUM: The heart and great vessels demonstrate no acute abnormality. There is no mediastinal or hilar lymph adenopathy. AXILLAE: Within normal limits. No lymphadenopathy. SKELETAL: Within normal limits for patient age. MISCELLANEOUS: The visualized upper abdominal organs demonstrate no acute abnormality. CONCLUSION: 1. Scattered subcentimeter pulmonary nodules likely benign. Followup CT chest and 6 at 12 months ana rosa mmended for stability. 2. No infiltrate or mass. 3. No thoracic aortic aneurysm. Rufus Craig MD on January 31, 2017 at 17:18 Board Certified Radiologist. This report was verified electronically.
[2017-01-31] MEDS ORDERED: MORPHINE SULFATE 4 MG/ML INJ IV ONE (17:30)
[2017-01-31 17:43] LABS: BLOOD, URINE MOD (NEG); COMMENT (UR) CULT NOT INDICATED; CULTURE IF INDICATED CULT NOT INDICATED; GLUCOSE,URINE NEG (NEG); KETONE, URINE NEG (NEG); MUCUS URINE FEW /lpf (OCC); NITRITE,URINE NEG (NEG); SQUAMOUS EPITHELIAL CELL URINE 1 /hpf (0-5); TRANSITIONAL EPI CELLS, URINE 1 /hpf; URINE COLOR YELLOW (YELLW/STRAW)
[2017-01-31 17:46] VITALS: RESP 16
[2017-01-31] MEDS ORDERED: ZOFR4TAB PO (19:00)
[2017-01-31] MEDS ORDERED: IMIT100T PO (19:00)
[2017-01-31] MEDS ORDERED: DICY10 PO (19:00)
[2017-01-31 19:08] VITALS: BP 164/88
--- NOTE | 2017-02-01 14:23 | EKG ---
Date Performed: 01/31/2017 Time Performed: 15:03:51 PTAGE: 51 years EKG: Sinus rhythm WITH MARKED SINUS ARRHYTHMIA BORDERLINE ECG Compared to PREVIOUS TRACING , the marked sinus arrhythmia is a new finding. PREVIOUS TRACIN2014 15.37 DOCTOR: Abigail Garza Interpretating Date/Time 02/01/2017 14:22:19
== END 2017-01-31 19:41 | disposition home or self-care (01) ==
LOC: NEPE 14:52
DX: R11.2 Nausea with vomiting, unspecified (principal); R07.9 Chest pain, unspecified; I71.4 Abdominal aortic aneurysm, without rupture; F17.200 Nicotine dependence, unspecified, uncomplicated
CPT/HCPCS: 71010; 71260; 74177; 80053; 81001; 82550; 83690; 84484; 93005; 96374; 96375; 99285; J0780; J2270; J7030; Q9967

== ENCOUNTER 2017-12-01 10:21 | Inpatient (IN) | payer OTHER ==
[~2017-12-01] VITALS: Ht 170.2 cm; Wt 77.5 kg
[2017-12-01] VITALS (19 sets, daily range): BP systolic 98–114; BP diastolic 5–62; PULSE 92–110; RESP 12–22; TEMP 97.6–99.4; O2SAT 95–100
[~2017-12-01 10:21] MED LIST changes: -DEPA500T3 PO; +DICY10 PO; -FIORINAL2 PO; -KETO10 PO; +ZOFR4TAB PO
[2017-12-01] MEDS ORDERED: DULO1CAP3 PO (10:48)
[2017-12-01] MEDS ORDERED: ROPI1TAB PO (10:52)
[2017-12-01] MEDS ORDERED: PERC7.5T13 PO (10:52)
[2017-12-01 11:06] LABS: AUTOMATED NEUTROPHIL # 4.1 TH/MM3 (1.8-7.7); BASOPHIL # 0.1 TH/MM3 (0-0.2); BASOPHIL % 1.5 % (0.0-2.0); EOSINOPHIL # 0.2 TH/MM3 (0-0.4); EOSINOPHIL % 3.4 % (0.0-4.0); LYMPH % 27.7 % (9.0-44.0); LYMPHOCYTE # 1.9 TH/MM3 (1.0-4.8); MEAN CELL VOLUME 84.6 FL (80.0-100.0); MEAN CORPUSCULAR HEMOGLOBIN 28.1 PG (27.0-34.0); MEAN CORPUSCULAR HGB CONC 33.2 % (32.0-36.0); MONO % 6.3 % (0.0-8.0); MONOCYTE # 0.4 TH/MM3 (0-0.9); NEUT % 61.1 % (16.0-70.0); PLATELET COUNT 257 TH/MM3 (150-450); RED BLOOD COUNT 2.18 MIL/MM3 (4.00-5.30); RED CELL DISTRIBUTION WIDTH 12.8 % (11.6-17.2); WHITE BLOOD COUNT 6.7 TH/MM3 (4.0-11.0)
[2017-12-01 11:13] LABS: CHLORIDE 108 MEQ/L (98-107); HEMATOCRIT 18.5 % (35.0-46.0); HEMOGLOBIN 6.1 GM/DL (11.6-15.3); SODIUM (NA) 140 MEQ/L (136-145)
[2017-12-01 11:17] LABS: ALBUMIN 2.7 GM/DL (3.4-5.0); BICARBONATE 25.5 MEQ/L (21.0-32.0); BLOOD UREA NITROGEN 23 MG/DL (7-18); CALCIUM 8.3 MG/DL (8.5-10.1); GLUCOSE,RANDOM 97 MG/DL (74-106)
[2017-12-01] MEDS ORDERED: SODIUM CHLOR 0.9% 1000 ML INJ 1,000 ML IV SCH (11:19)
[2017-12-01] MEDS ORDERED: PANTOPRAZOLE INJ 80 MG in SODIUM CHLORIDE 0.9% INJ 35 ML IV ONE (11:19)
[2017-12-01] MEDS ORDERED: PANTOPRAZOLE INJ 80 MG in SODIUM CHLORIDE 0.9% INJ 100 ML IV SCH (11:19)
[2017-12-01 11:20] LABS: ALT (GPT) 21 U/L (10-53); AST (GOT) 12 U/L (15-37); GLOMERULAR FILTRATION RATE 66 ML/MIN (>89)
[2017-12-01 11:22] LABS: TOTAL BILIRUBIN ADULT 0.1 MG/DL (0.2-1.0); TOTAL PROTEIN 5.9 GM/DL (6.4-8.2)
[2017-12-01 11:23] LABS: ALKALINE PHOSPHATASE 47 U/L (45-117)
--- NOTE | 2017-12-01 11:23 | PD ---
HPI Chief Complaint: Dizziness Time Seen by Provider: 11:19 Travel History International Travel<30 days: No Contact w/Intl Traveler<30days: No Traveled to known affect area: No History of Present Illness HPI 52-year-old female patient with history of chronic constipation, on opiate pain medications, had taken Linzess a few days ago, and states that since then she has been having diarrhea. She states that she was severely constipated and had to take out her stool and then started having diarrhea since , and she states she has seen some small amount of blood on it and it has been dark. She has been more tired, dizzy, not feeling well. She denies any vomiting, fevers, or other symptoms. Modifying Factors: None Associated Signs & Symptoms: Constipation followed by diarrhea with dark stools , dizziness, weakness Risk Factors: None PFSH Past Medical History Bipolar Disorder: Yes Anxiety: Yes Depression: Yes Heart Rhythm Problems: No Cancer: No Cardiac Catheterization: No Cardiovascular Problems: No High Cholesterol: No Congestive Heart Failure: No Diabetes: No Diminished Hearing: No Endocrine: No Fibromyalgia: Yes Gastrointestinal Disorders: Yes (CHRONIC CONSTIPATION) Genitourinary: Yes Hypertension: No Immune Disorder: No Kidney Stones: Yes Musculoskeletal: Yes (CHRONIC NECK PAIN; SEES PAIN MANAGEMENT) Neurologic: Yes (RLS) Psychiatric: Yes Reproductive: Yes (hysterectomy ) Respiratory: No Immunizations Current: Yes Migraines: Yes ?: Not Menopausal: Yes Past Surgical History Appendectomy: Yes Section: Yes Coronary Artery Bypass Graft: No Gynecologic Surgery: Yes (hysterectomy, c section) Hysterectomy: Yes Other Surgery: Yes Social History Alcohol Use: No Tobacco Use: No (VAPES) Substance Use: No (PT DENIES ) Allergies-Medications (Allergen,Severity, Reaction): Coded Allergies: No Known Allergies (Verified Allergy, Unknown, 12/01/17) Reported Meds & Prescriptions Reported Meds & Active Scripts Active Reported Linzess (Linaclotide) 145 Mcg Cap 145 Mcg PO DAILY PRN Ropinirole 1 Mg Tab 1 Mg PO TID Percocet (Oxycodone-Acetaminophen) 7.5-325 mg Tab 1 Tab PO Q6H PRN Duloxetine DR (Duloxetine HCl) 60 Mg Capdr 120 Mg PO DAILY Ambien (Zolpidem Tartrate) 10 Mg Tab 10 Mg PO HS PRN Alprazolam 1 Mg Tab 1 Mg PO TID PRN Review of Systems Except as stated in HPI: all other systems reviewed are Neg Physical Exam Narrative GENERAL: Well-developed middle-age female patient currently and moderate distress. Awake and oriented 3. SKIN: Focused skin assessment warm/dry. Pale appearing. HEAD: Atraumatic. Normocephalic. EYES: Pupils equal and round. No scleral icterus. No injection or drainage. ENT: No nasal bleeding or discharge. Mucous membranes pink and moist. NECK: Trachea midline. No JVD. Supple. CARDIOVASCULAR: Regular rate and rhythm. No murmur appreciated. RESPIRATORY: No accessory muscle use. Clear to auscultation. Breath sounds equal bilaterally. GASTROINTESTINAL: Abdomen soft, non-tender, nondistended. Hepatic and splenic margins not palpable. MUSCULOSKELETAL: No obvious deformities. No clubbing. No cyanosis. No edema. RECTAL EXAM: No masses or tenderness, stool is dark and Hemoccult positive. NEUROLOGICAL: Awake and alert. No obvious cranial nerve deficits. Motor grossly within normal limits. Normal speech. PSYCHIATRIC: Appropriate mood and affect; insight and judgment normal. Data Data Last Documented VS Vital Signs Date Time Temp Pulse Resp B/P (MAP) Pulse Ox O2 Delivery O2 Flow Rate FiO2 12/01/17 12:16 96 16 110/44 (66) 97 Room Air 12/01/17 10:29 97.9 Orders Orders Complete Blood Count With Diff (12/01/17 10:45) Comprehensive Metabolic Panel (12/01/17 10:45) Urinalysis - C+S If Indicated (12/01/17 10:45) Iv Access Insert/Monitor (12/01/17 10:45) Oxygen Administration (12/01/17 10:45) Oximetry (12/01/17 10:45) Lipase (12/01/17 10:45) Type And Screen (12/01/17 11:19) Red Blood Cells (Rbc) (12/01/17 11:19) Blood Product Administration (12/01/17 11:19) Sodium Chlor 0.9% 250 Ml Inj (Ns 250 Ml (12/01/17 11:30) Sodium Chlor 0.9% 1000 Ml Inj (Ns 1000 M (12/01/17 11:19) Sodium Chloride 0.9% Flush (Ns Flush) (12/01/17 11:30) Sodium Chloride 0.9... W/Pantoprazole In (12/01/17 11:19) Sodium Chloride 0.9... W/Pantoprazole In (12/01/17 11:19) Morphine Inj (Morphine Inj) (12/01/17 11:45) Pantoprazole Inj (Protonix Inj) (12/01/17 12:00) Electrocardiogram (12/01/17 ) Mra Abdomen W Contrast (12/01/17 ) Admit Order (Ed Use Only) (12/01/17 12:32) Labs Laboratory Tests Test 12/01/17 10:54 12/01/17 11:06 White Blood Count 6.7 TH/MM3 Red Blood Count 2.18 MIL/MM3 Hemoglobin 6.1 GM/DL Hematocrit 18.5 % Mean Corpuscular Volume 84.6 FL Mean Corpuscular Hemoglobin 28.1 PG Mean Corpuscular Hemoglobin Concent 33.2 % Red Cell Distribution Width 12.8 % Platelet Count 257 TH/MM3 Mean Platelet Volume 7.0 FL Neutrophils (%) (Auto) 61.1 % Lymphocytes (%) (Auto) 27.7 % Monocytes (%) (Auto) 6.3 % Eosinophils (%) (Auto) 3.4 % Basophils (%) (Auto) 1.5 % Neutrophils # (Auto) 4.1 TH/MM3 Lymphocytes # (Auto) 1.9 TH/MM3 Monocytes # (Auto) 0.4 TH/MM3 Eosinophils # (Auto) 0.2 TH/MM3 Basophils # (Auto) 0.1 TH/MM3 CBC Comment DIFF FINAL Differential Comment Blood Urea Nitrogen 23 MG/DL Creatinine 0.90 MG/DL Random Glucose 97 MG/DL Total Protein 5.9 GM/DL Albumin 2.7 GM/DL Calcium Level 8.3 MG/DL Alkaline Phosphatase 47 U/L Aspartate Amino Transf (AST/SGOT) 12 U/L Alanine Aminotransferase (ALT/SGPT) 21 U/L Total Bilirubin 0.1 MG/DL Sodium Level 140 MEQ/L Potassium Level 3.4 MEQ/L Chloride Level 108 MEQ/L Carbon Dioxide Level 25.5 MEQ/L Anion Gap 7 MEQ/L Estimat Glomerular Filtration Rate 66 ML/MIN Lipase 135 U/L Urine Color YELLOW Urine Turbidity CLEAR Urine pH 6.0 Urine Specific [place] 1.015 Urine Protein NEG mg/dL Urine Glucose (UA) NEG mg/dL Urine Ketones NEG mg/dL Urine Occult Blood NEG Urine Nitrite NEG Urine Bilirubin NEG Urine Urobilinogen 0.2 MG/DL Urine Leukocyte Esterase SMALL Urine RBC 0-3 /hpf Urine WBC 3-5 /hpf Urine Squamous Epithelial Cells 0-5 /hpf Urine Bacteria NONE /hpf Microscopic Urinalysis Comment CULT NOT INDICATED MDM Medical Decision Making Medical Screen Exam Complete: Yes Emergency Medical Condition: Yes Medical Record Reviewed: Yes Interpretation(s) Laboratory Tests Test 12/01/17 10:54 12/01/17 11:06 Red Blood Count 2.18 MIL/MM3 (4.00-5.30) Hemoglobin 6.1 GM/DL (11.6-15.3) Hematocrit 18.5 % (35.0-46.0) Blood Urea Nitrogen 23 MG/DL (7-18) Total Protein 5.9 GM/DL (6.4-8.2) Albumin 2.7 GM/DL (3.4-5.0) Calcium Level 8.3 MG/DL (8.5-10.1) Aspartate Amino Transf (AST/SGOT) 12 U/L (15-37) Total Bilirubin 0.1 MG/DL (0.2-1.0) Potassium Level 3.4 MEQ/L (3.5-5.1) Chloride Level 108 MEQ/L (98-107) Estimat Glomerular Filtration Rate 66 ML/MIN (>89) Urine Leukocyte Esterase SMALL (NEG) Differential Diagnosis GI bleed/symptomatic anemia Narrative Course She was given 2 units of PRBCs., Protonix was also given in the ER. GI was consulted on the case. Planning to admit for further treatment. Case is discussed with Dr. Wang who states that he like the patient to be transferred to the main hospital because of possibility of aorto GI fistula especially with her history of AAA. Patient was discussed with Dr. Lopez for admission, transfer paperwork filled for transfer over to the main hospital. He also wanted me to do an MRI and MRA abdomen for the patient for evaluation of bleeding as well. HemaPrompt Point of Care Internal Pos. & Neg. Controls: Passed Fecal Specimen Occult Blood: Positive Diagnosis Primary Impression: GI bleed Additional Impression: Symptomatic anemia Admitting Information Admitting Physician Requests: Admit Johny Flores MD Dec 01, 2017 11:23
[2017-12-01 11:30] LABS: BILIRUBIN, URINE NEG (NEG); BLOOD, URINE NEG (NEG); GLUCOSE,URINE NEG (NEG); KETONE, URINE NEG (NEG); NITRITE,URINE NEG (NEG); URINE COLOR YELLOW (YELLW/STRAW); URINE LEUKOCYTE ESTERASE SMALL (NEG)
[2017-12-01] MEDS ORDERED: SODIUM CHLOR 0.9% 250 ML INJ 250 ML IV ONE (11:30)
[2017-12-01] MEDS ORDERED: SODIUM CHLORIDE 0.9% FLUSH 10 ML FLUSH IVF PRN (11:30)
[2017-12-01] MEDS ORDERED: LINA145C PO (11:35)
[2017-12-01 11:40] LABS: RBC, URINE 0-3 /hpf (0-3); SQUAMOUS EPITHELIAL CELL URINE 0-5 /hpf (0-5)
[2017-12-01] MEDS ORDERED: MORPHINE SULFATE 4 MG/ML INJ IV PUSH ONE ×2 (11:45→22:30)
[2017-12-01] MEDS ORDERED: LACTULOSE SYRUP 20 GM/30 ML CUP PO PRN (12:30)
[2017-12-01] MEDS ORDERED: ACETAMINOPHEN 325 MG TAB PO PRN (12:30)
[2017-12-01] MEDS ORDERED: NALOXONE HCL 0.4 MG/ML AMP IV PUSH PRN (12:30)
[2017-12-01] MEDS ORDERED: SODIUM CHLORIDE 0.9% FLUSH 10 ML FLUSH IV FLUSH PRN (12:30)
[2017-12-01] MEDS ORDERED: SENNOSIDES 8.6 MG TAB PO PRN (12:30)
[2017-12-01] MEDS ORDERED: BISACODYL 10 MG SUPP RECTAL PRN (12:30)
[2017-12-01] MEDS ORDERED: MAGNESIUM HYDROXIDE SUSP 30 ML CUP PO PRN (12:30)
[2017-12-01] MEDS: PANTOPRAZOLE INJ 80 MG in SODIUM CHLORIDE 0.9% INJ 100 ML IV SCH ×2 (12:35→22:42)
--- NOTE | 2017-12-01 13:40 | HHI.HP ---
[facility] Non-Staff Admission Diagnosis GI bleed/symptomatic anemia/history of AAA Diagnoses: Chief Complaint: Dark stool, diarrhea, lightheadedness and dizziness. Travel History International Travel<30 Days: No Contact w/Intl Traveler <30 Da: No Traveled to Known Affected Are: No History of Present Illness Ms. Álvarez is a pleasant 52-year-old female with a history of chronic constipation, anxiety/depression who presents to the emergency department on due to dark stool, diarrhea as well as dizziness and lightheadedness. Patient has been dealing with chronic constipation for a long time. Sometimes she has to manually disimpact herself. However when the constipation gets really bad she takes Linzess which caused her significant diarrhea. During diarrheal episodes she noticed dark stool. She also noticed dizziness and lightheadedness in the last 4-5 days. Denies any nausea vomiting or coffee- ground emesis. Denies any hematochezia. No changes in bladder habits. Her last endoscopic studies were done 5 6 years ago. She has not seen her primary care physician in a year or so. Additionally she complains of epigastric discomfort which she thinks could be GERD. Review of Systems Except as stated in HPI: all other systems reviewed are Neg Past Family Social History Past Medical History Chronic constipation, bipolar disorder, anxiety/depression, fibromyalgia. Past Surgical History Hysterectomy appendectomy Reported Medications Linzess (Linaclotide) 145 Mcg Cap 145 Mcg PO DAILY PRN Ropinirole 1 Mg Tab 1 Mg PO TID Percocet (Oxycodone-Acetaminophen) 7.5-325 mg Tab 1 Tab PO Q6H PRN Duloxetine DR (Duloxetine HCl) 60 Mg Capdr 120 Mg PO DAILY Ambien (Zolpidem Tartrate) 10 Mg Tab 10 Mg PO HS PRN Alprazolam 1 Mg Tab 1 Mg PO TID PRN Allergies: Coded Allergies: No Known Allergies (Verified Allergy, Unknown, 12/01/17) Family History Father from congestive heart failure at age 45. Grandfather had colon cancer. Social History Patient denies using alcohol or illicit drugs. She does use vapors. Physical Exam Vital Signs Vital Signs Date Time Temp Pulse Resp B/P (MAP) Pulse Ox O2 Delivery O2 Flow Rate FiO2 12/01/17 13:35 110 18 114/62 (79) Nasal Cannula 12/01/17 12:48 98 21 12/01/17 12:35 92 16 102/59 (73) 98 Room Air 12/01/17 12:16 96 16 110/44 (66) 97 Room Air 12/01/17 11:30 102 16 98/52 (67) 97 Room Air 12/01/17 11:20 100 Room Air 12/01/17 10:29 97.9 108 18 101/58 (72) 99 Physical Exam GENERAL: This is a well-nourished, well-developed patient, in no apparent distress. SKIN: No rashes, ecchymoses or lesions. Warm and dry. HEAD: Atraumatic. Normocephalic. No temporal or scalp tenderness. EYES: Pupils equal round and reactive. No injection or drainage. ENT: Nose without bleeding, purulent drainage or septal hematoma. Airway patent. NECK: Trachea midline. No lymphadenopathy. Supple, nontender, no meningeal signs. CARDIOVASCULAR: Regular rhythm, mildly tachycardic without murmurs, gallops, or rubs. No JVD. RESPIRATORY: Clear to auscultation. Breath sounds equal bilaterally. No wheezes , rales, or rhonchi. GASTROINTESTINAL: Abdomen soft, somewhat tender especially on the left upper quadrant, nondistended. No guarding. MUSCULOSKELETAL: Extremities without clubbing, cyanosis, or edema. NEUROLOGICAL: Awake and alert. Cranial nerves II through XII intact. No focal neurological deficits. Normal speech. Laboratory Laboratory Tests Test 12/01/17 10:54 12/01/17 11:06 White Blood Count 6.7 Red Blood Count 2.18 Hemoglobin 6.1 Hematocrit 18.5 Mean Corpuscular Volume 84.6 Mean Corpuscular Hemoglobin 28.1 Mean Corpuscular Hemoglobin Concent 33.2 Red Cell Distribution Width 12.8 Platelet Count 257 Mean Platelet Volume 7.0 Neutrophils (%) (Auto) 61.1 Lymphocytes (%) (Auto) 27.7 Monocytes (%) (Auto) 6.3 Eosinophils (%) (Auto) 3.4 Basophils (%) (Auto) 1.5 Neutrophils # (Auto) 4.1 Lymphocytes # (Auto) 1.9 Monocytes # (Auto) 0.4 Eosinophils # (Auto) 0.2 Basophils # (Auto) 0.1 CBC Comment DIFF FINAL Differential Comment Blood Urea Nitrogen 23 Creatinine 0.90 Random Glucose 97 Total Protein 5.9 Albumin 2.7 Calcium Level 8.3 Alkaline Phosphatase 47 Aspartate Amino Transf (AST/SGOT) 12 Alanine Aminotransferase (ALT/SGPT) 21 Total Bilirubin 0.1 Sodium Level 140 Potassium Level 3.4 Chloride Level 108 Carbon Dioxide Level 25.5 Anion Gap 7 Estimat Glomerular Filtration Rate 66 Lipase 135 Urine Color YELLOW Urine Turbidity CLEAR Urine pH 6.0 Urine Specific [place] 1.015 Urine Protein NEG Urine Glucose (UA) NEG Urine Ketones NEG Urine Occult Blood NEG Urine Nitrite NEG Urine Bilirubin NEG Urine Urobilinogen 0.2 Urine Leukocyte Esterase SMALL Urine RBC 0-3 Urine WBC 3-5 Urine Squamous Epithelial Cells 0-5 Urine Bacteria NONE Microscopic Urinalysis Comment CULT NOT INDICATED Result Diagram: 12/01/17 1054 12/01/17 1054 Caprini VTE Risk Assessment Caprini VTE Risk Assessment: No/Low Risk (score <= 1) Caprini Risk Assessment Model Point Value = 1 Point Value = 2 Point Value = 3 Point Value = 5 Age 41-60 Minor surgery BMI > 25 kg/m2 Swollen legs Varicose veins or History of unexplained or recurrent spontaneous Oral contraceptives or hormone replacement Sepsis (< 1 month) Serious lung disease, including pneumonia (< 1 month) Abnormal pulmonary function Acute myocardial infarction Congestive heart failure (< 1 month) History of inflammatory bowel disease Medical patient at bed rest Age 61-74 Arthroscopic surgery Major open surgery (> 45 min) Laparoscopic surgery (> 45 min) Malignancy Confined to bed (> 72 hours) Immobilizing plaster cast Central venous access Age >= 75 History of VTE Family history of VTE Factor V Leiden Prothrombin [id number] Lupus anticoagulant Anticardiolipin antibodies Elevated serum homocysteine Heparin-induced thrombocytopenia Other congenital or acquired thrombophilia Stroke (< 1 month) Elective arthroplasty Hip, pelvis, or leg fracture Acute spinal cord injury (< 1 month) Prophylaxis Regimen Total Risk Factor Score Risk Level Prophylaxis Regimen 0-1 Low Early ambulation 2 Moderate Order ONE of the following: *Sequential Compression Device (SCD) *Heparin 5000 units SQ BID 3-4 Higher Order ONE of the following medications: *Heparin 5000 units SQ TID *Enoxaparin/Lovenox 40 mg SQ daily (WT < 150 kg, CrCl > 30 mL/min) *Enoxaparin/Lovenox 30 mg SQ daily (WT < 150 kg, CrCl > 10-29 mL/min) *Enoxaparin/Lovenox 30 mg SQ BID (WT < 150 kg, CrCl > 30 mL/min) AND/OR *Sequential Compression Device (SCD) 5 or more Highest Order ONE of the following medications: *Heparin 5000 units SQ TID (Preferred with Epidurals) *Enoxaparin/Lovenox 40 mg SQ daily (WT < 150 kg, CrCl > 30 mL/min) *Enoxaparin/Lovenox 30 mg SQ daily (WT < 150 kg, CrCl > 10-29 mL/min) *Enoxaparin/Lovenox 30 mg SQ BID (WT < 150 kg, CrCl > 30 mL/min) AND *Sequential Compression Device (SCD) Assessment and Plan Problem List: (1) Chronic constipation ICD Code: K59.09 - Other constipation (2) GI bleed ICD Code: K92.2 - Gastrointestinal hemorrhage, unspecified Status: Acute (3) Symptomatic anemia ICD Code: D64.9 - Anemia, unspecified Status: Acute (4) Anxiety and depression ICD Code: F41.9 - Anxiety disorder, unspecified; F32.9 - Major depressive disorder, single episode, unspecified Status: Chronic Assessment and Plan Mr. Álvarez is a 52-year-old female with a history of chronic constipation who presents to the emergency department on 12/01/2017 due to dizziness and lightheadedness for the last 4-5 days. During constipation, she took Linzess which caused her to have significant diarrhea. Patient noticed dark stool. Her hemoglobin on admission was 6.1. Probable upper GI bleed Symptomatic anemia -Patient is currently on Protonix drip. -ED provider discussed with technician automatic who recommended transferring patient to the main hospital. -Patient will likely need EGD and perhaps colonoscopy as well. -Patient is scheduled to receive 2 units of PRBCs. -GI consulted. Chronic Constipation - Patient will likely benefit from daily Miralax upon discharge. GERD - Patient will also benefit from daily PPI upon discharge. Anxiety/depression Insomnia -Continue Xanax 1 mg 3 times daily as needed, duloxetine 120 mg daily, zolpidem 10 mg nightly. Full code. SCDs. Physician Certification 2 Midnight Certification Type: Admission for Inpatient Services Order for Inpatient Services The services are ordered in accordance with Medicare regulations or non- Medicare payer requirements, as applicable. In the case of services not specified as inpatient-only, they are appropriately provided as inpatient services in accordance with the 2-midnight benchmark. Estimated LOS (days): 2 days is the estimated time the patient will need to remain in the hospital, assuming treatment plan goals are met and no additional complications. Post-Hospital Plan: Home Thalia Lopez DO Dec 01, 2017 13:40
[2017-12-01] MEDS: SODIUM CHLOR 0.9% 1000 ML INJ 1,000 ML IV SCH ×2 (13:55→22:42)
[2017-12-01] MEDS ORDERED: ALPRAZolam 1 MG TAB PO PRN (14:00)
[2017-12-01] MEDS ORDERED: GADODIAMIDE PF 287 MG/ML 10 ML VIAL (for RAD MRI) IVCONTRAST ONE (14:15)
[2017-12-01] MEDS: ALPRAZolam 0.5 MG TAB PO PRN ×2 (15:04→21:48)
[2017-12-01] MEDS ORDERED: MORPHINE PO (15:21)
[2017-12-01] MEDS: oxyCODONE/ACETAMINOPHEN 7.5 MG/325 MG TAB PO PRN (15:42)
--- NOTE | 2017-12-01 16:57 | RADRPT ---
EXAM DATE: 12/01/2017 3:34 PM EDT AGE/SEX: 52 years / Female INDICATIONS: . Aneurysm and GI bleed. CLINICAL DATA: This is the patient's initial encounter. Patient reports that signs and symptoms have been present for 1 day and indicates a pain score of 0/10. MEDICAL/SURGICAL HISTORY: Aneurysm, abdominal. Hysterectomy. COMPARISON: [facility] – [place], CT ABDOMEN & PELVIS W CONTRAST, 01/31/2017. . TECHNIQUE: 30 ml Omniscan (gadodiamide) contrast infused MR angiography (single exam dose) was perf ormed with digital subtraction. The data was postprocessed with a variety of visualization algorithm s including full-volume maximum-intensity projection, multiplanar sliding thin slab reformation, and curved planar reformation. FINDINGS: Abdominal Aorta: There is an infrarenal fusiform abdominal aortic aneurysm which measures 3.7 x 3.4 cm in maximal axial dimension. This is in comparison to 3.6 x 3.[address] exam. There is an a pproximately 1 cm aneurysm neck without significant angulation. Aneurysm extends to the aortic bifurc ation. Renal Arteries: There is a solitary right renal artery. There is likely a small accessory inferior l eft renal artery. The renal arteries appear grossly patent. Mesenteric arteries: The celiac and SMA are patent. PURA is patent and arises from the aneurysm sac. Kidneys: Multiple bilateral renal cysts are again demonstrated similar to prior exam. Kidneys otherw ise demonstrate symmetrical enhancement without hydronephrosis. Right Pelvis: Right common iliac arteries aneurysmal measuring up to 13 mm. Left common iliac artery is normal in caliber measuring up to 6 mm. Internal iliac arteries are patent bilaterally. The exter nal iliac arteries are patent and normal in caliber bilaterally. Post Contrast: No abnormal areas of enhancement seen. Visualized portions of the liver, spleen and he art are unremarkable. CONCLUSION: 1. Fusiform infrarenal abdominal aortic aneurysm measuring 3.7 x 3.4 cm in comparison to 3.6 x 3.[address] examination of 01/31/2017. Please note that MRA examination is an endoluminal technique which can underestimate the size of the aneurysm. 2. 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 3. Mesenteric arteries are patent. 4. Bilateral renal cysts. Electronically signed by: Jh Vieyra MD 12/01/2017 4:55 PM EDT
--- NOTE | 2017-12-01 18:41 | EKG ---
Date Performed: 12/01/2017 Time Performed: 10:55:37 PTAGE: 52 years EKG: SINUS TACHYCARDIA ABNORMAL RHYTHM ECG Since the PREVIOUS TRACING , no significant change noted PREVIOUS TRACIN01/31/2017 15.03 DOCTOR: Nelia Lutz Interpretating Date/Time 12/01/2017 18:40:20
[2017-12-01] MEDS: ACETAMIN 325 MG/BUTALBITAL 50 MG/CAFFEINE 40 MG TAB PO PRN (18:51)
[2017-12-01] MEDS: ZOLPIDEM TARTRATE 10 MG TAB PO PRN (21:48)
[2017-12-01] MEDS: SODIUM CHLORIDE 0.9% FLUSH 10 ML FLUSH IV FLUSH SCH (21:48)
[2017-12-01] MEDS ORDERED: CHLORHEXIDINE GLUCONATE 2 % 1 PACK (2 CLOTHS)(extra cloths) TOPICAL PRN (22:00)
[2017-12-02] VITALS (18 sets, daily range): BP systolic 102–148; BP diastolic 55–85; PULSE 93–116; RESP 11–52; TEMP 97.8–99; O2SAT 92–99
[2017-12-02] MEDS: oxyCODONE/ACETAMINOPHEN 7.5 MG/325 MG TAB PO PRN ×3 (03:28→22:59)
[2017-12-02] MEDS: ALPRAZolam 0.5 MG TAB PO PRN ×3 (03:28→19:50)
[2017-12-02] MEDS: CHLORHEXIDINE GLUCONATE 2 % 1 PACK (2 CLOTHS)(taper/protocol) TOPICAL SCH (04:00)
[2017-12-02 07:49] LABS: AUTOMATED NEUTROPHIL # 3.4 TH/MM3 (1.8-7.7); BASOPHIL # 0.1 TH/MM3 (0-0.2); BASOPHIL % 1.7 % (0.0-2.0); EOSINOPHIL # 0.3 TH/MM3 (0-0.4); EOSINOPHIL % 4.4 % (0.0-4.0); LYMPH % 31.3 % (9.0-44.0); LYMPHOCYTE # 1.9 TH/MM3 (1.0-4.8); MEAN CELL VOLUME 82.9 FL (80.0-100.0); MONO % 8.7 % (0.0-8.0); MONOCYTE # 0.5 TH/MM3 (0-0.9); NEUT % 53.9 % (16.0-70.0); PLATELET COUNT 196 TH/MM3 (150-450); RED BLOOD COUNT 2.43 MIL/MM3 (4.00-5.30); WHITE BLOOD COUNT 6.2 TH/MM3 (4.0-11.0)
[2017-12-02 08:12] LABS: HEMOGLOBIN 7.1 GM/DL (11.6-15.3)
[2017-12-02 08:13] LABS: HEMATOCRIT 20.2 % (35.0-46.0)
[2017-12-02 08:32] LABS: BICARBONATE 23.3 MEQ/L (21.0-32.0); CALCIUM 7.4 MG/DL (8.5-10.1); CREATININE 0.75 MG/DL (0.50-1.00)
[2017-12-02] MEDS ORDERED: SODIUM CHLOR 0.9% 250 ML INJ 250 ML IV ONE (08:45)
[2017-12-02 08:55] LABS: CALCIUM-PROTEIN CORRECTED 8.8 MG/DL (8.5-10.1); TOTAL PROTEIN 4.6 GM/DL (6.4-8.2)
[2017-12-02] MEDS ORDERED: DULoxetine HCl DR 60 MG CAP PO SCH (09:00)
[2017-12-02] MEDS: SODIUM CHLORIDE 0.9% FLUSH 10 ML FLUSH IV FLUSH SCH ×2 (09:40→19:50)
[2017-12-02] MEDS: SODIUM CHLOR 0.9% 1000 ML INJ 1,000 ML IV SCH ×2 (09:40→19:50)
[2017-12-02] MEDS: ACETAMIN 325 MG/BUTALBITAL 50 MG/CAFFEINE 40 MG TAB PO PRN (09:41)
--- NOTE | 2017-12-02 10:50 | PD.CONS ---
HPI History of Present Illness This is a 52 year old female who was admitted on 12/01/2017 with dark stools, diarrhea, dizziness and lightheadedness. Patient is currently being managed in the intensive care setting. Patient's initial hemoglobin was 6.1 and she received 2 units packed RBCs. Next hemoglobin 7.1 and patient is pending to more units of packed RBCs. Currently patient is complaining of headache and patient does appear to be drowsy with poor historian. According to the record and patient she does note acute on chronic constipation and states that her bowels have not moved since sometime last week. She also notes that she has not been eating since that time but according to the staff patient did eat this past a.m. currently patient denies any epigastric pain to light palpation but does note a recent history of greater than 2 times a week of heartburn and dyspepsia symptoms. It is also noted that patient has had some Linzess in the past but has increased amounts of stool and significant diarrhea when using. Labs show bilirubin and LFT normal range. CT scan shows abdominal aortic aneurysm measuring 3.7 x 3.4 cm which is a comparison from previous CT exam on . Mesenteric arteries are patent right common iliac artery aneurysm measuring up to 13 mm. Gastroenterology has been consulted for GI bleed and evaluation. (Yovana Marquez) PFSH Past Medical History Chronic constipation, bipolar disorder, anxiety/depression, fibromyalgia. Past Surgical History Hysterectomy appendectomy (Yovana Marquez) Coded Allergies: No Known Allergies (Verified Allergy, Unknown, 12/01/17) Medications Administered Medications Medications (Trade) Dose Ordered Sig/Brenda Route PRN Reason Start Time Stop Time Status Last Admin Dose Admin Pantoprazole Sodium 80 mg/ Sodium Chloride 100 ml @ 10 mls/hr Q10H IV 12/01/17 12:00 12/01/17 22:42 Sodium Chloride 1,000 ml @ 100 mls/hr Q10H IV 12/01/17 12:30 12/02/17 09:40 Sodium Chloride (NS Flush) 2 ml BID IV FLUSH 12/01/17 21:00 12/02/17 09:40 Duloxetine HCl (Cymbalta Dr) 120 mg DAILY PO 12/02/17 09:00 12/02/17 09:40 Zolpidem Tartrate (Ambien) 10 mg HS PRN PO INSOMNIA 12/01/17 14:00 12/01/17 21:48 Alprazolam (Xanax) 1 mg TID PRN PO ANXIETY 12/01/17 15:15 12/02/17 03:28 Oxycodone/ Acetaminophen (Percocet 7.5-325 Mg) 1 tab Q6H PRN PO PAIN 5-10 12/01/17 15:30 12/02/17 03:28 Acetaminophen/ Butalbital/ Caffeine (Fioricet 325-50-40) 1 tab Q6H PRN PO Headache 12/01/17 18:30 12/02/17 18:29 12/02/17 09:41 Miscellaneous Information ([facility] [place] [facility] Patient in critical care unit? Ass... Q361D .XX 12/01/17 22:00 12/01/17 22:00 Chlorhexidine Gluconate (Chlorhexidine 2% Cloth) 3 pack DAILY@04 TOPICAL 12/02/17 04:00 12/06/17 04:01 12/02/17 04:00 Family History Father from congestive heart failure at age 45. Grandfather had colon cancer. Social History Patient denies using alcohol or illicit drugs. She does use vapors. Patient also says told staff that she took morphine at home for chronic pain management (Yovana Marquez) Review of Systems Constitutional: COMPLAINS OF: Dizziness Gastrointestinal: COMPLAINS OF: Heartburn Headache (Yovana Marquez) GI Exam Vitals I&O Vital Signs Date Time Temp Pulse Resp B/P (MAP) Pulse Ox O2 Delivery O2 Flow Rate FiO2 12/02/17 09:48 98.3 96 11 102/58 95 12/02/17 06:00 98 12 113/59 (77) 92 12/02/17 06:00 98 12/02/17 05:00 100 12/02/17 05:00 100 12 114/57 (76) 94 12/02/17 04:00 96 12/02/17 04:00 98.4 96 13 110/57 (74) 97 12/02/17 02:00 98 12/02/17 00:00 95 12/02/17 00:00 98.1 95 15 105/59 (74) 96 12/01/17 22:08 98 21 12/01/17 22:00 94 12/01/17 21:02 99.4 103 15 100/52 100 12/01/17 20:43 98.3 106 15 111/5 100 12/01/17 20:00 98.4 96 12 114/55 (74) 99 12/01/17 20:00 100 12/01/17 18:02 97.8 92 12 109/57 98 12/01/17 18:00 95 12/01/17 17:47 97.6 96 22 114/55 100 12/01/17 17:00 97.6 96 12 114/55 (74) 99 12/01/17 16:25 12/01/17 16:10 105 16 103/52 (69) 98 Room Air 12/01/17 16:00 94 12/01/17 14:55 103 16 111/56 (74) 95 Room Air 12/01/17 13:35 110 18 114/62 (79) Nasal Cannula 12/01/17 12:48 98 21 12/01/17 12:35 92 16 102/59 (73) 98 Room Air 12/01/17 12:16 96 16 110/44 (66) 97 Room Air 12/01/17 11:30 102 16 98/52 (67) 97 Room Air 12/01/17 11:20 95 Room Air 12/01/17 11:20 100 Room Air I/O 12/01/17 12/01/17 12/01/17 12/02/17 12/02/17 12/02/17 07:00 15:00 23:00 07:00 15:00 23:00 Intake Total 1035 ml 1945 ml 50 ml Output Total 500 ml Balance 1035 ml 1445 ml 50 ml Intake Oral 0 ml IV Total 1035 ml 1100 ml 50 ml Packed Cells 800 ml Blood Product IV Normal Saline Flush 45 ml Output Urine Total 500 ml # Voids 1 1 2 # Bowel Movements 0 0 Imaging Last Impressions Abdomen Magnetic Resonance Angio 12/01/17 0000 Signed Impressions: CONCLUSION: 1. Fusiform infrarenal abdominal aortic aneurysm measuring 3.7 x 3.4 cm in com parison to 3.6 x 3.[address] examination of 01/31/2017. Please note that MRA ex amination is an endoluminal technique which can underestimate the size of the a neurysm. 2. 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 3. Mesenteric arteries are patent. 4. Bilateral renal cysts. Laboratory Test 12/01/17 10:54 12/01/17 11:06 12/01/17 21:00 12/02/17 07:10 White Blood Count 6.7 TH/MM3 6.2 TH/MM3 Red Blood Count 2.18 MIL/MM3 2.43 MIL/MM3 Hemoglobin 6.1 GM/DL 7.1 GM/DL Hematocrit 18.5 % 20.2 % Mean Corpuscular Volume 84.6 FL 82.9 FL Mean Corpuscular Hemoglobin 28.1 PG 29.0 PG Mean Corpuscular Hemoglobin Concent 33.2 % 35.0 % Red Cell Distribution Width 12.8 % 14.0 % Platelet Count 257 TH/MM3 196 TH/MM3 Mean Platelet Volume 7.0 FL 7.0 FL Neutrophils (%) (Auto) 61.1 % 53.9 % Lymphocytes (%) (Auto) 27.7 % 31.3 % Monocytes (%) (Auto) 6.3 % 8.7 % Eosinophils (%) (Auto) 3.4 % 4.4 % Basophils (%) (Auto) 1.5 % 1.7 % Neutrophils # (Auto) 4.1 TH/MM3 3.4 TH/MM3 Lymphocytes # (Auto) 1.9 TH/MM3 1.9 TH/MM3 Monocytes # (Auto) 0.4 TH/MM3 0.5 TH/MM3 Eosinophils # (Auto) 0.2 TH/MM3 0.3 TH/MM3 Basophils # (Auto) 0.1 TH/MM3 0.1 TH/MM3 CBC Comment DIFF FINAL DIFF FINAL Differential Comment Blood Urea Nitrogen 23 MG/DL 11 MG/DL Creatinine 0.90 MG/DL 0.75 MG/DL Random Glucose 97 MG/DL 82 MG/DL Total Protein 5.9 GM/DL 4.6 GM/DL Albumin 2.7 GM/DL Calcium Level 8.3 MG/DL 7.4 MG/DL Alkaline Phosphatase 47 U/L Aspartate Amino Transf (AST/SGOT) 12 U/L Alanine Aminotransferase (ALT/SGPT) 21 U/L Total Bilirubin 0.1 MG/DL Sodium Level 140 MEQ/L 145 MEQ/L Potassium Level 3.4 MEQ/L 3.8 MEQ/L Chloride Level 108 MEQ/L 115 MEQ/L Carbon Dioxide Level 25.5 MEQ/L 23.3 MEQ/L Anion Gap 7 MEQ/L 7 MEQ/L Estimat Glomerular Filtration Rate 66 ML/MIN 81 ML/MIN Lipase 135 U/L Urine Color YELLOW Urine Turbidity CLEAR Urine pH 6.0 Urine Specific Wilson 1.015 Urine Protein NEG mg/dL Urine Glucose (UA) NEG mg/dL Urine Ketones NEG mg/dL Urine Occult Blood NEG Urine Nitrite NEG Urine Bilirubin NEG Urine Urobilinogen 0.2 MG/DL Urine Leukocyte Esterase SMALL Urine RBC 0-3 /hpf Urine WBC 3-5 /hpf Urine Squamous Epithelial Cells 0-5 /hpf Urine Bacteria NONE /hpf Microscopic Urinalysis Comment CULT NOT INDICATED Nasal Screen MRSA (PCR) MRSA NOT DETECTED Protein Corrected Calcium 8.8 MG/DL Physical Examination HEENT: Pale, normocephalic; atraumatic; no jaundice. NECK: Neck is supple, no JVD, no lymphadenopathy. CHEST: Chest is clear to auscultation and percussion. CARDIAC: Regular rate and rhythm ABDOMEN: Soft, nondistended, nontender to light palpation; no hepatosplenomegaly; bowel sounds soft EXTREMITIES: No clubbing, cyanosis, or edema. SKIN: No obvious rash, pale. HURL SHAKER: Drowsy answers a few simple questions but currently poor historian (Yovana Marquez) Assessment and Plan Assessment: (1) GI bleed ICD Codes: K92.2 - Gastrointestinal hemorrhage, unspecified Status: Acute (2) Symptomatic anemia ICD Codes: D64.9 - Anemia, unspecified Status: Acute (3) Chronic constipation ICD Codes: K59.09 - Other constipation Plan 52-year-old female admitted to the hospital on 12/01/2017 with dark stool, dizziness lightheadedness and acute on chronic constipation. Diarrhea noted per the admission note but patient states loose stools only when taken her Linzess. According to the record EGD: 5-6 years ago Dyspepsia greater than 2 times a week with epigastric pain, currently denies any dysphasia. Symptomatic anemia which could be related to upper GI bleed, ulcer, AVMs. Gastroenterology will consult and evaluate. Current platelet count 196, last hemoglobin 7.1. LFTs and bilirubin is normal. Note CT scan follow-up abdominal aneurysm. Plan N.p.o. for now Consent for EGD today Monitor hemoglobin and labs and transfuse as necessary Supportive care PPI drip Stool softeners and bowel regimen Further recommendations to follow Patient was seen per myself and Dr. Cortes, does note was written on her behalf (Yovana Marquez) Physician Comments seen, examined agree with above of note patient name was found on the list, I was not notified by patient transfer from to [facility] , consult called to in (Brianda Cortes MD) Yovana Marquez Dec 02, 2017 10:50 Brianda Cortes MD Dec 02, 2017 15:23
--- NOTE | 2017-12-02 11:09 | HHI.PR ---
Subjective Remarks Follow-up GI bleed, anemia. The patient states that she feels very tired. No other complaints at this time. Denies chest pain or dyspnea. Objective Vitals Vital Signs Date Time Temp Pulse Resp B/P (MAP) Pulse Ox O2 Delivery O2 Flow Rate FiO2 12/02/17 09:48 98.3 96 11 102/58 95 12/02/17 06:00 98 12 113/59 (77) 92 12/02/17 06:00 98 12/02/17 05:00 100 12/02/17 05:00 100 12 114/57 (76) 94 12/02/17 04:00 96 12/02/17 04:00 98.4 96 13 110/57 (74) 97 12/02/17 02:00 98 12/02/17 00:00 95 12/02/17 00:00 98.1 95 15 105/59 (74) 96 12/01/17 22:08 98 21 12/01/17 22:00 94 12/01/17 21:02 99.4 103 15 100/52 100 12/01/17 20:43 98.3 106 15 111/5 100 12/01/17 20:00 98.4 96 12 114/55 (74) 99 12/01/17 20:00 100 12/01/17 18:02 97.8 92 12 109/57 98 12/01/17 18:00 95 12/01/17 17:47 97.6 96 22 114/55 100 12/01/17 17:00 97.6 96 12 114/55 (74) 99 12/01/17 16:25 12/01/17 16:10 105 16 103/52 (69) 98 Room Air 12/01/17 16:00 94 12/01/17 14:55 103 16 111/56 (74) 95 Room Air 12/01/17 13:35 110 18 114/62 (79) Nasal Cannula 12/01/17 12:48 98 21 12/01/17 12:35 92 16 102/59 (73) 98 Room Air 12/01/17 12:16 96 16 110/44 (66) 97 Room Air 12/01/17 11:30 102 16 98/52 (67) 97 Room Air 12/01/17 11:20 95 Room Air 12/01/17 11:20 100 Room Air I/O 12/01/17 12/01/17 12/01/17 12/02/17 12/02/17 12/02/17 07:00 15:00 23:00 07:00 15:00 23:00 Intake Total 1035 ml 1945 ml 50 ml Output Total 500 ml Balance 1035 ml 1445 ml 50 ml Intake Oral 0 ml IV Total 1035 ml 1100 ml 50 ml Packed Cells 800 ml Blood Product IV Normal Saline Flush 45 ml Output Urine Total 500 ml # Voids 1 1 2 # Bowel Movements 0 0 Result Diagram: 12/02/17 0710 12/02/17 0710 Imaging Last Impressions Abdomen Magnetic Resonance Angio 12/01/17 0000 Signed Impressions: CONCLUSION: 1. Fusiform infrarenal abdominal aortic aneurysm measuring 3.7 x 3.4 cm in com parison to 3.6 x 3.[address] examination of 01/31/2017. Please note that MRA ex amination is an endoluminal technique which can underestimate the size of the a neurysm. 2. 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 3. Mesenteric arteries are patent. 4. Bilateral renal cysts. Objective Remarks General: No acute distress. Heart: Regular rate and rhythm. No murmur. Lungs: Clear to auscultation bilaterally. No wheezes, rales, or rhonchi. Breathing is nonlabored. Abdomen: Soft, nontender, nondistended. Extremities: No lower extremity edema. Psych: Sleeping, but awakens and answers questions appropriately. Neuro: Normal speech. No focal deficits noted. Procedures None Urinary Catheter: No Vascular Central Line Catheter: No A/P Problem List: (1) Chronic constipation ICD Code: K59.09 - Other constipation (2) GI bleed ICD Code: K92.2 - Gastrointestinal hemorrhage, unspecified Status: Acute (3) Symptomatic anemia ICD Code: D64.9 - Anemia, unspecified Status: Acute (4) Anxiety and depression ICD Code: F41.9 - Anxiety disorder, unspecified; F32.9 - Major depressive disorder, single episode, unspecified Status: Chronic Assessment and Plan 1. Probable upper GI bleed: Continue Protonix drip. Appreciate GI recommendations. EGD/colonoscopy planned. 2. Symptomatic anemia: Patient received 2 units PRBCs. Hemoglobin only increased to 7.1. Will transfuse 2 more units in light of probable ongoing GI bleed. 3. Chronic constipation: Appreciate GI recommendations. Would probably benefit from daily MiraLAX upon discharge. 4. GERD: Continue PPI. 5. Anxiety/depression: Xanax as needed. Continue Cymbalta. 6. Insomnia: Ambien. 7. DVT prophylaxis: SCDs. Avoid chemical prophylaxis secondary to GI bleed, anemia. Luis Avila MD Dec 02, 2017 11:09
[2017-12-02 14:05] LABS: HEMATOCRIT 26.5 % (35.0-46.0); HEMOGLOBIN 8.9 GM/DL (11.6-15.3)
--- NOTE | 2017-12-02 15:05 | GIPROC ---
[facility] [address] [facility]. [facility], [address] EGD PROCEDURE REPORT EXAM DATE: 12/02/2017 PATIENT NAME: Nica Álavrez MR #: [id number] BIRTHDATE: 1965 ATTENDING: Brianda Cortes MD ORDER #: [id number] WORSHIP LEADER: Vaishnavi Porter and Estella Dickey STATUS: inpatient INDICATIONS: The patient is a 52 yr old female here for an EGD due to anemia PROCEDURE PERFORMED: EGD w/ biopsy MEDICATIONS: None and Per Anesthesia. TOPICAL ANESTHETIC: none CONSENT: The patient understands the risks and benefits of the procedure and understands that these risks include, but are not limited to: sedation, allergic reaction, infection, perforation and/or bleeding. Alternative means of evaluation and treatment include, among others: physical exam, x-rays, and/or surgical intervention. The patient elects to proceed with this endoscopic procedure. medical equipment was checked for proper function. Hand hygiene and appropriate measures for infection prevention was taken. After the risks, benefits and alternatives of the procedure were thoroughly explained, Informed consent was verified, confirmed and timeout was successfully executed by the treatment team. The patient was anesthetized with topical anesthesia and the Pentax [id number] endoscope was introduced through the mouth and advanced to the second portion of the duodenum. Retroflexed views revealed a hiatal hernia The gastroscope was then slowly withdrawn and removed. Duodenitis second portion/bulb-biopsy r/o celiac disease gastritis antrum-biopsy esophagitis distal esophagus -biopsy. ADVERSE EVENTS: There were no complications. IMPRESSIONS: 1. Duodenitis second portion/bulb-biopsy r/o celiac disease gastritis antrum-biopsy esophagitis distal esophagus -biopsy 2. Retroflexed views revealed a hiatal hernia RECOMMENDATIONS: 1. Await biopsy results. Biopsy results will not be ready for 7-10 days. If you don't hear from us in two weeks, call our office for biopsy results. 2. Anti-reflux regimen 3. Continue PPI 4. Avoid NSAIDS 5. Colonoscopy in am PATIENT CONDITION: stable DISPOSITION: Inpatient REPEAT EXAM: Return 6 weeks EGD Brianda Cortes MD eSigned: Brianda Cortes MD 12/02/2017 3:05 PM cc: PATIENT NAME: Nica Álvarez MR#: [id number]
[2017-12-02] MEDS ORDERED: PEG (High)/E-LYTE SOLN 4000 ML BTL PO ONE (15:15)
[2017-12-02] MEDS: PANTOPRAZOLE INJ 80 MG in SODIUM CHLORIDE 0.9% INJ 100 ML IV SCH ×2 (17:07→18:06)
[2017-12-02 19:45] LABS: HEMATOCRIT 28.4 % (35.0-46.0); HEMOGLOBIN 9.8 GM/DL (11.6-15.3)
[2017-12-02] MEDS: ZOLPIDEM TARTRATE 10 MG TAB PO PRN (19:50)
[2017-12-03] VITALS (9 sets, daily range): BP systolic 122–133; BP diastolic 61–65; PULSE 90–99; RESP 14–16; TEMP 97.6–98.9; O2SAT 92–96
[2017-12-03 01:23] LABS: HEMATOCRIT 26.6 % (35.0-46.0); HEMOGLOBIN 9.3 GM/DL (11.6-15.3)
[2017-12-03] MEDS: PANTOPRAZOLE INJ 80 MG in SODIUM CHLORIDE 0.9% INJ 100 ML IV SCH (03:18)
[2017-12-03] MEDS: ALPRAZolam 0.5 MG TAB PO PRN (03:19)
[2017-12-03] MEDS: SODIUM CHLOR 0.9% 1000 ML INJ 1,000 ML IV SCH (03:19)
[2017-12-03] MEDS: CHLORHEXIDINE GLUCONATE 2 % 1 PACK (2 CLOTHS)(taper/protocol) TOPICAL SCH (03:19)
[2017-12-03] MEDS: oxyCODONE/ACETAMINOPHEN 7.5 MG/325 MG TAB PO PRN (06:01)
[2017-12-03 07:29] LABS: HEMATOCRIT 27.4 % (35.0-46.0); HEMOGLOBIN 9.6 GM/DL (11.6-15.3)
[2017-12-03 07:49] LABS: BICARBONATE 24.5 MEQ/L (21.0-32.0); CALCIUM 7.7 MG/DL (8.5-10.1); CREATININE 0.68 MG/DL (0.50-1.00)
[2017-12-03] MEDS ORDERED: SUMAtriptan SUCCINATE 50 MG TAB PO ONE ×2 (09:30→12:00)
--- NOTE | 2017-12-03 10:09 | HHI.PR ---
Subjective Remarks Follow-up anemia, GI bleed. Patient states that she feels a little better today. She wants to go home. States that she does not want to have a colonoscopy done. She denies any bleeding. Denies chest pain or dyspnea. Objective Vitals Vital Signs Date Time Temp Pulse Resp B/P (MAP) Pulse Ox O2 Delivery O2 Flow Rate FiO2 12/03/17 08:04 96 12/03/17 04:00 97.6 93 16 128/61 (83) 95 12/03/17 03:00 97 15 133/65 (87) 92 12/03/17 02:00 98 16 127/63 (84) 94 12/03/17 01:00 99 15 123/64 (83) 95 12/03/17 00:00 98.3 98 14 123/61 (81) 95 12/02/17 23:00 109 20 121/63 (82) 96 12/02/17 22:20 109 15 132/66 (88) 94 12/02/17 22:00 108 16 94 12/02/17 21:00 115 18 95 12/02/17 20:00 116 12/02/17 20:00 99.0 115 16 148/69 (95) 99 12/02/17 18:00 99 12/02/17 16:45 97.9 97 32 135/72 98 12/02/17 16:27 97.8 95 21 124/85 98 12/02/17 16:00 97.8 98 26 124/85 (98) 97 12/02/17 16:00 98 12/02/17 15:20 96 20 130/79 (96) 96 12/02/17 15:05 97.0 91 16 137/79 (98) 96 12/02/17 12:00 95 12/02/17 12:00 98.2 95 25 114/59 (77) 97 I/O 12/02/17 12/02/17 12/02/17 12/03/17 12/03/17 12/03/17 07:00 15:00 23:00 07:00 15:00 23:00 Intake Total 50 ml 410 ml 2610 ml 1670 ml Output Total 2400 ml 1750 ml Balance 50 ml 410 ml 210 ml -80 ml Intake Oral 900 ml 240 ml IV Total 50 ml 1430 ml Packed Cells 400 ml 1200 ml Blood Product IV Normal Saline Flush 10 ml 10 ml Other 500 ml Output Urine Total 2400 ml 1750 ml # Voids 2 1 # Bowel Movements 0 0 Result Diagram: 12/03/17 0706 12/03/17 0706 Imaging Last Impressions Abdomen Magnetic Resonance Angio 12/01/17 0000 Signed Impressions: CONCLUSION: 1. Fusiform infrarenal abdominal aortic aneurysm measuring 3.7 x 3.4 cm in com parison to 3.6 x 3.[address] examination of 01/31/2017. Please note that MRA ex amination is an endoluminal technique which can underestimate the size of the a neurysm. 2. 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 3. Mesenteric arteries are patent. 4. Bilateral renal cysts. Objective Remarks General: No acute distress. Heart: Regular rate and rhythm. No murmur. Lungs: Clear to auscultation bilaterally. No wheezes, rales, or rhonchi. Breathing is nonlabored. Abdomen: Soft, nontender, nondistended. Extremities: No lower extremity edema. Psych: Sleeping, but awakens and answers questions appropriately. Neuro: Normal speech. No focal deficits noted. Procedures 12/02/17 EGD Urinary Catheter: No Vascular Central Line Catheter: No A/P Problem List: (1) Chronic constipation ICD Code: K59.09 - Other constipation (2) GI bleed ICD Code: K92.2 - Gastrointestinal hemorrhage, unspecified Status: Acute (3) Symptomatic anemia ICD Code: D64.9 - Anemia, unspecified Status: Acute (4) Anxiety and depression ICD Code: F41.9 - Anxiety disorder, unspecified; F32.9 - Major depressive disorder, single episode, unspecified Status: Chronic Assessment and Plan 1. Probable upper GI bleed: Continue Protonix drip. Appreciate GI recommendations. EGD showed duodenitis, gastritis, esophagitis. Planning for colonoscopy soon. Patient is resistant to doing colonoscopy at this time. 2. Symptomatic anemia: Patient received 4 units PRBCs. Hemoglobin improved. 3. Chronic constipation: Appreciate GI recommendations. Would probably benefit from daily MiraLAX upon discharge. 4. GERD: Continue PPI. 5. Anxiety/depression: Xanax as needed. Continue Cymbalta. 6. Insomnia: Ambien. 7. DVT prophylaxis: SCDs. Avoid chemical prophylaxis secondary to GI bleed, anemia. Discharge Planning Pending further clinical improvement, GI clearance. The patient states that she will leave AGAINST MEDICAL ADVICE. I have counseled her regarding my recommendation that she remain in the hospital for further monitoring of her H& H and further workup to identify a source of GI bleeding. She has been explained the risks of leaving AGAINST MEDICAL ADVICE prior to completion of the inpatient workup, including worsening of her condition and even . Luis Avila MD Dec 03, 2017 10:09
[2017-12-03] MEDS ORDERED: MORPHINE SULFATE 4 MG/ML INJ IV PUSH ONE (12:00)
== END 2017-12-03 13:05 | disposition left against medical advice (07) | DRG 379 ==
LOC: PHED 10:21 → PHEDA 12:34 → HIMN 16:45
PROVIDERS: ADMIT Family Medicine; ATTEND Family Medicine
PROC: 30233N1 Transfusion of Nonautologous Red Blood Cells into Peripheral Vein, Percutaneous Approach (ICD-10-PCS; 2017-12-01)
PROC: 0DB78ZX Excision of Stomach, Pylorus, Via Natural or Artificial Opening Endoscopic, Diagnostic (ICD-10-PCS; 2017-12-02)
PROC: 0DB38ZX Excision of Lower Esophagus, Via Natural or Artificial Opening Endoscopic, Diagnostic (ICD-10-PCS; principal; 2017-12-02 14:34)
DX: K92.2 Gastrointestinal hemorrhage, unspecified (principal); I72.3 Aneurysm of iliac artery; D64.9 Anemia, unspecified; F31.9 Bipolar disorder, unspecified; F41.9 Anxiety disorder, unspecified; K59.09 Other constipation; K29.80 Duodenitis without bleeding; K44.9 Diaphragmatic hernia without obstruction or gangrene; K21.0 Gastro-esophageal reflux disease with esophagitis; K29.70 Gastritis, unspecified, without bleeding; M54.2 Cervicalgia; G47.00 Insomnia, unspecified; I71.4 Abdominal aortic aneurysm, without rupture; M79.7 Fibromyalgia; N28.1 Cyst of kidney, acquired; G89.29 Other chronic pain; R19.7 Diarrhea, unspecified; Z90.710 Acquired absence of both cervix and uterus; Z95.1 Presence of aortocoronary bypass graft; Z87.442 Personal history of urinary calculi
CPT/HCPCS: 36430; 80048; 80053; 81001; 82784; 83516; 83690; 84155; 85014; 85018; 85025; 86850; 86900; 86901; 86920; 87641; 88305; 88312; 93005; 96361; 96374; 96375; A9579; C8900; C9113; J2270; J7030; J7050; P9016